=== PATIENT | male | born 1965 | race Caucasian/White ===

== ENCOUNTER 2019-10-23 12:35 | Emergency (ER) | payer OTHER, SELFPAY ==
[2019-10-23 13:32] VITALS: BP 186/100; PULSE 81; RESP 22; TEMP 36.7; O2SAT 96
--- NOTE | 2019-10-23 13:40 | XR_ITS ---
WS: [id number] Portable AP upright chest, 10/23/2019 Clinical Data: SOB Comparison: PA and lateral chest, 08/21/2019. Findings: No nodules, masses or effusions are seen. The heart is normal. The pulmonary vascularity is not remarkable. No pneumonia or pneumothorax is seen. There is an old healed posterior-lateral right eighth rib fracture. XR/XR chest 1V portable 25020 Impression: Negative chest.
--- NOTE | 2019-10-23 13:43 | ECG_ITS ---
Measurements Intervals [place] Rate: 80 P: 42 VA: 160 QRS: 33 QRSD: 85 T: 59 QT: 363 QTc: 419 SINUS RHYTHM Compared to ECG 04/09/2019 10:36:23 No significant changes Electronically Signed On 10-23-2019 17:08:51 VEGETABLE PACKER by Mayte Orlando M.D. [email or web address]
[2019-10-23 14:31] LABS: Basophils % 0.6 %; Eosinophils # 0.2 10^3/uL (0.0-0.8); Eosinophils % 4.2 %; Hematocrit 44.4 % (42.0-52.0); Hemoglobin 14.4 g/dL (11.7-16.6); Lymphocytes # 1.3 10^3/uL (0.8-4.8); Lymphocytes % 24.5 %; Mean Corpuscular HGB Conc 32.4 g/dL (30.0-36.0); Mean Corpuscular Hemoglobin 28.7 pg (28.0-34.0); Mean Corpuscular Volume 88.6 fL (80-94); Monocytes # 0.6 10^3/uL (0.2-0.9); Monocytes % 11.2 %; Neutrophils # 3.1 10^3/uL (1.8-7.7); Neutrophils % 59.1 %; Nucleated Red Blood Cells % 0 %; Platelet Count 219 10^3/cmm (130-400); Red Blood Count 5.01 10^6/uL (4.1-5.3); Red Cell Distribution Width 12.6 % (12.1-15.1); White Blood Count 5.3 10^3/uL (4.0-10.0)
[2019-10-23 14:51] LABS: Alanine Aminotransferase 20 U/L (0-41); Albumin Level 4.3 g/dL (3.5-5.2); Alkaline Phosphatase 101 IU/L (40-130); Aspartate Amino Transferase 25 U/L (0-40); Blood Urea Nitrogen 7 mg/dL (6-20); Calcium 9.4 mg/Dl (8.6-10.0); Carbon Dioxide 26 mmol/L (22-29); Chloride 100 mmol/L (98-107); Globulin 2.4 g/dL (1.3-4.6); Glucose 93 mg/dL (74-109); Sodium 139 mmol/L (136-145); Total Bilirubin 0.5 mg/dL (0.15-1.2); Total Protein 6.7 g/dL (6.6-8.7)
[2019-10-23 14:52] LABS: Troponin(5th) Baseline 12 ng/mL (0-15)
--- NOTE | 2019-10-23 15:43 | ECG_ITS ---
Measurements Intervals [place] Rate: 82 P: 104 SC: 161 QRS: 54 QRSD: 100 T: 116 QT: 340 QTc: 399 SINUS RHYTHM ABNORMAL QRS-T ANGLE [QRS-T AXIS DIFFERENCE > 60] Compared to ECG 04/09/2019 10:36:23 No significant changes Electronically Signed On 10-23-2019 17:10:29 POLICE ACADEMY INSTRUCTOR by Mayte Orlando M.D. [email or web address]
[2019-10-23 16:50] LABS: Troponin 5 2HR 11.51 ng/mL (0-15)
[2019-10-23 16:51] LABS: Troponin 5 2HR Delta -0.49 ABS# (0-10)
[2019-10-23 17:30] VITALS: BP 174/90; PULSE 83; RESP 20; O2SAT 94
--- NOTE | 2019-10-23 17:33 | W.ED.SOB ---
HPI - SOB/Dyspnea General: Chief Complaint: Shortness of Breath/Dyspnea Stated Complaint: SoB Time Seen by Provider: 10/23/19 17:34 History of Present Illness: HPI Narrative: 54 yo Male presents to ED with complaint of shorntess of breath. [facility] ED PFSH: Statuses (acute, chronic, etc) shown below reflect problem list status as previously entered and may not be historically accurate Social History Smoking and tobacco status: never smoked Course Vital Signs: Vital signs: Vital Signs Temperature 98.0 F 10/23/19 13:32 Pulse Rate 83 10/23/19 17:30 Respiratory Rate 20 H 10/23/19 17:30 Blood Pressure 174/90 10/23/19 17:30 Pulse Oximetry 94 10/23/19 17:30 MDM - SOB/Dyspnea Lab Data: Labs: Lab Results 10/23/19 10/23/19 10/23/19 Range/Units 14:11 14:11 14:11 WBC 5.3 (4.0-10.0) 10^3/ uL RBC 5.01 (4.1-5.3) 10^6/u L Hgb 14.4 (11.7-16.6) g/dL Hct 44.4 (42.0-52.0) % MCV 88.6 (80-94) fL MCH 28.7 (28.0-34.0) pg MCHC 32.4 (30.0-36.0) g/dL RDW 12.6 (12.1-15.1) % Plt Count 219 (130-400) 10^3/c mm MPV 10.0 (7.4-10.4) fL Neut % (Auto) 59.1 % Lymph % (Auto) 24.5 % [place] % (Auto) 11.2 % Eos % (Auto) 4.2 % Baso % (Auto) 0.6 % Neut # (Auto) 3.1 (1.8-7.7) 10^3/u L Lymph # (Auto) 1.3 (0.8-4.8) 10^3/u L [place] # (Auto) 0.6 (0.2-0.9) 10^3/u L Eos # (Auto) 0.2 (0.0-0.8) 10^3/u L Baso # (Auto) 0.0 (0.0-0.1) 10^3/u L Nucleated RBC % (a uto) 0 % Nucleated RBCs # 0.0 /100WBC Sodium 139 (136-145) mmol/L Potassium 4.0 (3.5-5.1) mmol/L Chloride 100 (98-107) mmol/L Carbon Dioxide 26 (22-29) mmol/L Anion Gap 17.0 (5-19) BUN 7 (6-20) mg/dL Creatinine 0.8 (0.7-1.2) mg/dL GFR Calculation 100.0 (90-130) mL/min Glucose 93 (74-109) mg/dL Calcium 9.4 (8.6-10.0) mg/Dl Total Bilirubin 0.5 (0.15-1.2) mg/dL AST 25 (0-40) U/L ALT 20 (0-41) U/L Alkaline Phosphata se 101 (40-130) IU/L Troponin T Baselin e 12 (0-15) ng/mL Troponin T 120 Min [place] (0-15) ng/mL Delta Troponin T (0-10) ABS# Total Protein 6.7 (6.6-8.7) g/dL Albumin 4.3 (3.5-5.2) g/dL Globulin 2.4 (1.3-4.6) g/dL 10/23/19 Range/Units 16:19 WBC (4.0-10.0) 10^3/ uL RBC (4.1-5.3) 10^6/u L Hgb (11.7-16.6) g/dL Hct (42.0-52.0) % MCV (80-94) fL MCH (28.0-34.0) pg MCHC (30.0-36.0) g/dL RDW (12.1-15.1) % Plt Count (130-400) 10^3/c mm MPV (7.4-10.4) fL Neut % (Auto) % Lymph % (Auto) % [place] % (Auto) % Eos % (Auto) % Baso % (Auto) % Neut # (Auto) (1.8-7.7) 10^3/u L Lymph # (Auto) (0.8-4.8) 10^3/u L [place] # (Auto) (0.2-0.9) 10^3/u L Eos # (Auto) (0.0-0.8) 10^3/u L Baso # (Auto) (0.0-0.1) 10^3/u L Nucleated RBC % (a uto) % Nucleated RBCs # /100WBC Sodium (136-145) mmol/L Potassium (3.5-5.1) mmol/L Chloride (98-107) mmol/L Carbon Dioxide (22-29) mmol/L Anion Gap (5-19) BUN (6-20) mg/dL Creatinine (0.7-1.2) mg/dL GFR Calculation (90-130) mL/min Glucose (74-109) mg/dL Calcium (8.6-10.0) mg/Dl Total Bilirubin (0.15-1.2) mg/dL AST (0-40) U/L ALT (0-41) U/L Alkaline Phosphata se (40-130) IU/L Troponin T Baselin e (0-15) ng/mL Troponin T 120 Min [place] 11.51 (0-15) ng/mL Delta Troponin T -0.49 L (0-10) ABS# Total Protein (6.6-8.7) g/dL Albumin (3.5-5.2) g/dL Globulin (1.3-4.6) g/dL Coding Level of Care Code ED Cement Mixer Driver for Noel Jean
--- NOTE | 2019-10-23 17:35 | PC.NURSE ---
patient states chest tightness is from the cough and history of COPD, not cardiac related
--- NOTE | 2019-10-23 17:45 | W.ED.GENADLT ---
HPI - General Adult General: Chief complaint: Shortness of Breath/Dyspnea Stated complaint: SoB Time Seen by Provider: 10/23/19 17:34 History of Present Illness: MD complaint: fever, chills, muscles aches, sob a few days Onset (ago): day(s) Location: chest Severity: moderate Associated symptoms: Reports dyspnea; Deny headache(s), nausea, rash or vomiting Review of Systems Const: Denies: fever, chills or body aches Eyes: Denies: change in vision or blurry vision ENMT: Denies: throat pain or nasal congestion Card: Denies: shortness of breath on exertion Resp: Reports: shortness of breath; Denies: productive cough or non-productive cough GI: Denies: abdominal pain, nausea or vomiting : Denies: difficulty urinating Musc: Denies: extremity pain Skin/Breast: Denies: rash Neuro: Denies: headache Psych: Denies: anxiety or depression [place]/Lymph: Denies: easy bruising PFSH ED PFSH: Statuses (acute, chronic, etc) shown below reflect problem list status as previously entered and may not be historically accurate Social History Smoking and tobacco status: never smoked Physical Exam Const: COMMON NORMALS: no apparent distress, average body habitus and oriented x3 HENMT: COMMON NORMALS: normocephalic HEAD & SCALP: normal to inspection and normocephalic FACE & SINUS: normal facial exam Eye: COMMON NORMALS: conjunctivae normal GENERAL EYE: normal appearance of both eyes CONJUNCTIVA: Yes conjunctivae normal Neck/C-Spine: COMMON NORMALS: no JVD Chest: COMMONS NORMALS: inspection of chest normal Resp: COMMON NORMALS: normal respiratory effort and clear to auscultation bilaterally AUSCULTATION: clear to auscultation bilaterally, wheezes scattered wheezes and diminished lung sounds bilateral and diffuse Cardio: COMMON NORMALS: no JVD, regular rate and regular rhythm RATE: regular rate RHYTHM: regular rhythm GI: COMMON NORMALS: normal to inspection, nondistended, normoactive bowel sounds Extremity: COMMON NORMALS: normal to inspection and full ROM Neuro: COMMON NORMALS: oriented x3 Course Vital Signs: Vital signs: Vital Signs Temperature 98.0 F 10/23/19 13:32 Pulse Rate 83 10/23/19 17:30 Respiratory Rate 20 H 01/02/20 17:30 Blood Pressure 174/90 10/23/19 17:30 Pulse Oximetry 94 10/23/19 17:30 [facility] - General Adult Lab Data: Labs: Lab Results 10/23/19 10/23/19 10/23/19 Range/Units 14:11 14:11 14:11 WBC 5.3 (4.0-10.0) 10^3/ uL RBC 5.01 (4.1-5.3) 10^6/u L Hgb 14.4 (11.7-16.6) g/dL Hct 44.4 (42.0-52.0) % MCV 88.6 (80-94) fL MCH 28.7 (28.0-34.0) pg MCHC 32.4 (30.0-36.0) g/dL RDW 12.6 (12.1-15.1) % Plt Count 219 (130-400) 10^3/c mm MPV 10.0 (7.4-10.4) fL Neut % (Auto) 59.1 % Lymph % (Auto) 24.5 % [place] % (Auto) 11.2 % Eos % (Auto) 4.2 % Baso % (Auto) 0.6 % Neut # (Auto) 3.1 (1.8-7.7) 10^3/u L Lymph # (Auto) 1.3 (0.8-4.8) 10^3/u L [place] # (Auto) 0.6 (0.2-0.9) 10^3/u L Eos # (Auto) 0.2 (0.0-0.8) 10^3/u L Baso # (Auto) 0.0 (0.0-0.1) 10^3/u L Nucleated RBC % (a uto) 0 % Nucleated RBCs # 0.0 /100WBC Sodium 139 (136-145) mmol/L Potassium 4.0 (3.5-5.1) mmol/L Chloride 100 (98-107) mmol/L Carbon Dioxide 26 (22-29) mmol/L Anion Gap 17.0 (5-19) BUN 7 (6-20) mg/dL Creatinine 0.8 (0.7-1.2) mg/dL GFR Calculation 100.0 (90-130) mL/min Glucose 93 (74-109) mg/dL Calcium 9.4 (8.6-10.0) mg/Dl Total Bilirubin 0.5 (0.15-1.2) mg/dL AST 25 (0-40) U/L ALT 20 (0-41) U/L Alkaline Phosphata se 101 (40-130) IU/L Troponin T Baselin e 12 (0-15) ng/mL Troponin T 120 Min [place] (0-15) ng/mL Delta Troponin T (0-10) ABS# Total Protein 6.7 (6.6-8.7) g/dL Albumin 4.3 (3.5-5.2) g/dL Globulin 2.4 (1.3-4.6) g/dL 10/23/19 Range/Units 16:19 WBC (4.0-10.0) 10^3/ uL RBC (4.1-5.3) 10^6/u L Hgb (11.7-16.6) g/dL Hct (42.0-52.0) % MCV (80-94) fL MCH (28.0-34.0) pg MCHC (30.0-36.0) g/dL RDW (12.1-15.1) % Plt Count (130-400) 10^3/c mm MPV (7.4-10.4) fL Neut % (Auto) % Lymph % (Auto) % [place] % (Auto) % Eos % (Auto) % Baso % (Auto) % Neut # (Auto) (1.8-7.7) 10^3/u L Lymph # (Auto) (0.8-4.8) 10^3/u L [place] # (Auto) (0.2-0.9) 10^3/u L Eos # (Auto) (0.0-0.8) 10^3/u L Baso # (Auto) (0.0-0.1) 10^3/u L Nucleated RBC % (a uto) % Nucleated RBCs # /100WBC Sodium (136-145) mmol/L Potassium (3.5-5.1) mmol/L Chloride (98-107) mmol/L Carbon Dioxide (22-29) mmol/L Anion Gap (5-19) BUN (6-20) mg/dL Creatinine (0.7-1.2) mg/dL GFR Calculation (90-130) mL/min Glucose (74-109) mg/dL Calcium (8.6-10.0) mg/Dl Total Bilirubin (0.15-1.2) mg/dL AST (0-40) U/L ALT (0-41) U/L Alkaline Phosphata se (40-130) IU/L Troponin T Baselin e (0-15) ng/mL Troponin T 120 Min [place] 11.51 (0-15) ng/mL Delta Troponin T -0.49 L (0-10) ABS# Total Protein (6.6-8.7) g/dL Albumin (3.5-5.2) g/dL Globulin (1.3-4.6) g/dL Discharge Plan Discharge Patient Disposition: Home, Self-Care Clinical Impression: Acute exacerbation of chronic obstructive airways disease Condition: Stable Referrals: Clarence Pulliam [Primary Care Provider] - Discharge Diet: Usual diet Discharge Activity: Resume usual activity Patient Instructions: Chronic Obstructive Pulmonary Disease (ED) Activity Restrictions/Additional Instructions: z-pack , use as directed, follow up with PCP as needed Coding Level of Care Code ED Data Capture Specialist for Noel Jean
[2019-10-23] MEDS: azithromycin 250 mg Tablet 500 MG PO (18:12)
[2019-10-23 18:25] LABS: Influenza A by IFA Negative (Negative); Influenza B by IFA Negative (Negative)
[2019-10-23 19:14] VITALS: BP 179/94; PULSE 89; RESP 20; O2SAT 92
== END 2019-10-23 19:05 | disposition home or self-care (01) ==
PROVIDERS: Family Medicine; Emergency Provider Nurse Practitioner Family; Family Provider Internal Medicine; PCP Internal Medicine
DX: J44.1 Chronic obstructive pulmonary disease with (acute) exacerbation (principal)
CPT/HCPCS: 36415; 71045; 80053; 84484; 85025; 87804; 93005; 96374; 99000; 99282; J2930; Q0144

== ENCOUNTER 2020-04-13 10:21 | Emergency (ER) | payer OTHER, SELFPAY ==
[2020-04-13 10:36] VITALS: BMI 40.1
[2020-04-13 10:38] VITALS: BP 170/86; PULSE 55; RESP 20; TEMP 36.7; O2SAT 97
--- NOTE | 2020-04-13 10:42 | ED_ITS ---
HPI - Nausea/Vomiting/Diarrhea General: Chief complaint: Nausea/Vomiting/Diarrhea Stated complaint: n/v/d x 12 days Time Seen by Provider: 04/13/20 10:35 History of Present Illness: MD elicited complaint: nausea, vomiting and diarrhea Onset (ago): week(s) (started about 2 weeks ago) Description of vomiting: food contents (no blood) Description of diarrhea: lose (brown colored. no blood and not black or tarry) Associated nausea: Yes Location of pain: Epigastric (Has been going on for 2 weeks along with only other abdominal pain.), Periumbilical and RUQ Radiation: RUQ and RLQ Pain consistency: constant Severity: moderate Pain scale (0-10): 8 Quality: cramping and constant Exacerbating factors: eating Relieving factors: none Context: possible food poisoning (Patient did say that they did eat some hamburger meat and they found out that the particular brand was recalled. They are unsure if the meat that they purchased at night was 1 of the products recalled.) Associated symtoms: Reports fevers/chills, nausea and other (Patient recently removed from multiple ticks from his right leg.); Denies change in vision, chest pain, dysuria, fatigue, headache(s) or palpitations Treatment prior to arrival: fluids (water) Review of Systems Const: Reports: chills; Denies: fever(s) or fatigue Eyes: Denies: change in vision or eye discomfort ENMT: Denies: throat pain, odynophagia, nasal discharge or nasal congestion Card: Denies: chest pain, palpitations, edema, swelling of feet/ankles, dyspnea on exertion or orthopnea Resp: Denies: dyspnea, productive cough or non-productive cough GI: Reports: abdominal pain (periumbilical and epigastric. pain radiates down to right side of abdomen), nausea, vomiting and diarrhea; Denies: hematemesis, coffee ground emesis, hematochezia or melena : Denies: flank pain, difficulty urinating, dysuria or hematuria Musc: Denies: neck pain, back pain or extremity swelling Skin/Breast: Denies: rash or new lesions Neuro: Denies: headache(s), numbness in extremities or weakness in extremities PFSH ED PFSH: Social History Smoking and tobacco status: never smoked Physical Exam Const: COMMON NORMALS: patient oriented x3 and alert GENERAL APPEARANCE: cooperative and comfortable HENMT: COMMON NORMALS: normocephalic HEAD & SCALP: normocephalic MOUTH: Normal oral and palatal mucosa present THROAT: posterior oropharynx normal and uvula midline Eye: COMMON NORMALS: Equal, round and reactive pupils present PUPIL: Yes Equal, round and reactive pupils present Neck/C-Spine: COMMON NORMALS: supple GENERAL: Yes normal visual inspection Resp: COMMON NORMALS: normal respiratory effort, No retractions, No use of accessory muscles and clear to auscultation bilaterally AUSCULTATION: clear to auscultation bilaterally Cardio: COMMON NORMALS: regular rate, regular rhythm, S1 normal heart sound present, S2 normal heart sound present, No gallops present (Cardio), No clicks present (Cardio), No murmurs present (Cardio) and Peripheral pulses 2+ throughout RATE: regular rate RHYTHM: regular rhythm HEART SOUNDS: S1 normal heart sound present and S2 normal heart sound present PERIPHERAL PULSES: Peripheral pulses 2+ throughout GI: COMMON NORMALS: Normal to inspection, nondistended, normoactive bowel sounds present, Soft to palpation and no masses INSPECTION: Yes central obesity PALPATION: Yes Soft to palpation and Yes Tenderness to palpation present (GI) (Mild diffuse tenderness. ) Details: RUQ (Some localized tenderness in the right upper quadrant and epigastric region.) and other (Epigastric) : COMMON NORMALS: Yes no CVA tenderness BLADDER/KIDNEY EXAM: Yes no CVA tenderness Back/Pelvis: COMMON NORMALS: no CVA tenderness Extremity: COMMON NORMALS: normal to inspection Neuro: COMMON NORMALS: patient oriented x3 and moves all extremities SENSORIUM/ORIENTATION: Yes alert SPEECH: speech normal GAIT: Yes Normal gait present Skin: COMMON NORMALS: no rashes or lesions noted GENERAL SKIN EXAM: no rashes or lesions noted and dry skin Course Vital Signs: Vital signs: Vital Signs Temperature 98.0 F 04/13/20 10:38 Pulse Rate 76 04/13/20 15:02 Respiratory Rate 15 04/13/20 15:02 Blood Pressure 135/75 04/13/20 15:02 Pulse Oximetry 98 04/13/20 15:02 MDM - Nausea/Vomiting/Diarrhea MDM Narrative: Medical decision making narrative: Pt is a 54 y/o m that comes to the ED with epigastric, RUQ abdom pain, n/v/d. pt has had these symptoms multiple times before, but this time the symptoms have lasted the longest. Pt also has recent tick bites. cbc (WBC 5.6), cmp and ua were unremarkable. Tick panel pending. EKG was normal sinus with no st segment elevation or depression seen and troponins were negative ruling out cardiac cause. Ct of the abdomen showed Cholelithiasis. No evidence for acute cholecystitis by CT. Very minimal central biliary dilatation with no common bile duct dilatation. US of Gall Bladder showed Cholelithiasis. No definite evidence for acute cholecystitis but limited evaluation by body habitus. pt's pain improved with IV morphine and GI cocktail. Nausea also improved with zofran. pt was diagnosed with gallstones, biliary colic and GERD. pt discharged with prescription for prevacid, doxycycline for tick disease and written prescription for norco for pain. I placed an order with case management for pt to get a gen surgery referral. pt was told to stay on a CLD diet for the next 24-48 hours and then advance as tolerated. Pt told to come back to ED if worsening symptoms. pt understood and agreed with plan. Lab Data: Attestation: I reviewed the patient's lab results. Labs: Lab Results 04/13/20 04/13/20 04/13/20 Range/Units 10:50 10:50 10:50 WBC 5.6 (4.0-10.0) 10^3/ uL RBC 4.96 (4.1-5.3) 10^6/u L Hgb 14.4 (11.7-16.6) g/dL Hct 44.2 (42.0-52.0) % MCV 89.1 (80-94) fL MCH 29.0 (28.0-34.0) pg MCHC 32.6 (30.0-36.0) g/dL RDW 12.8 (12.1-15.1) % Plt Count 210 (130-400) 10^3/c mm MPV 10.1 (7.4-10.4) fL Neut % (Auto) 55.7 % Lymph % (Auto) 29.6 % [place] % (Auto) 10.0 % Eos % (Auto) 3.4 % Baso % (Auto) 1.1 % Neut # (Auto) 3.1 (1.8-7.7) 10^3/u L Lymph # (Auto) 1.7 (0.8-4.8) 10^3/u L [place] # (Auto) 0.6 (0.2-0.9) 10^3/u L Eos # (Auto) 0.2 (0.0-0.8) 10^3/u L Baso # (Auto) 0.1 (0.0-0.1) 10^3/u L Nucleated RBC % (a uto) 0 % Nucleated RBCs # 0.0 /100WBC Sodium 139 (136-145) mmol/L Potassium 3.8 (3.5-5.1) mmol/L Chloride 100 (98-107) mmol/L Carbon Dioxide 30 H (22-29) mmol/L Anion Gap 12.8 (5-19) BUN 8 (6-20) mg/dL Creatinine 0.8 (0.7-1.2) mg/dL GFR Calculation 100.0 (90-130) mL/min Glucose 98 (65-115) mg/dL Calculated Osmolal ity 284 L (285-295) mOsm/k g Calcium 9.7 (8.5-10.5) mg/dL Total Bilirubin 0.7 (0.15-1.2) mg/dL AST 27 (0-40) U/L ALT 35 (0-41) U/L Alkaline Phosphata se 98 (40-130) IU/L Troponin T Gen 5 n g/L 13 (0-15) ng/L Total Protein 6.9 (6.6-8.7) g/dL Albumin 4.3 (3.5-5.2) g/dL Globulin 2.6 (1.3-4.6) g/dL Lipase 51 (13-60) U/L Urine Color (Yellow) Urine Appearance (CLEAR) Urine pH (5-7) Ur Specific Gravit y (1.005-1.030) Urine Protein (Negative) Urine Glucose (UA) (Normal) Urine Ketones (Negative) Urine Blood (Negative) Urine Nitrate (Negative) Urine Bilirubin (NEGATIVE) Urine Urobilinogen (Negative) mg/dL Ur Leukocyte Audelia ase (Negative) 04/13/20 Range/Units 11:18 WBC (4.0-10.0) 10^3/ uL RBC (4.1-5.3) 10^6/u L Hgb (11.7-16.6) g/dL Hct (42.0-52.0) % MCV (80-94) fL MCH (28.0-34.0) pg MCHC (30.0-36.0) g/dL RDW (12.1-15.1) % Plt Count (130-400) 10^3/c mm MPV (7.4-10.4) fL Neut % (Auto) % Lymph % (Auto) % [place] % (Auto) % Eos % (Auto) % Baso % (Auto) % Neut # (Auto) (1.8-7.7) 10^3/u L Lymph # (Auto) (0.8-4.8) 10^3/u L [place] # (Auto) (0.2-0.9) 10^3/u L Eos # (Auto) (0.0-0.8) 10^3/u L Baso # (Auto) (0.0-0.1) 10^3/u L Nucleated RBC % (a uto) % Nucleated RBCs # /100WBC Sodium (136-145) mmol/L Potassium (3.5-5.1) mmol/L Chloride (98-107) mmol/L Carbon Dioxide (22-29) mmol/L Anion Gap (5-19) BUN (6-20) mg/dL Creatinine (0.7-1.2) mg/dL GFR Calculation (90-130) mL/min Glucose (65-115) mg/dL Calculated Osmolal ity (285-295) mOsm/k g Calcium (8.5-10.5) mg/dL Total Bilirubin (0.15-1.2) mg/dL AST (0-40) U/L ALT (0-41) U/L Alkaline Phosphata se (40-130) IU/L Troponin T Gen 5 n g/L (0-15) ng/L Total Protein (6.6-8.7) g/dL Albumin (3.5-5.2) g/dL Globulin (1.3-4.6) g/dL Lipase (13-60) U/L Urine Color Yellow (Yellow) Urine Appearance Clear (CLEAR) Urine pH 7 (5-7) Ur Specific Gravit y 1.005 (1.005-1.030) Urine Protein Neg (Negative) Urine Glucose (UA) Norm (Normal) Urine Ketones Negative (Negative) Urine Blood Neg (Negative) Urine Nitrate Negative (Negative) Urine Bilirubin Neg (NEGATIVE) Urine Urobilinogen Norm (Negative) mg/dL Ur Leukocyte Audelia ase Negative (Negative) Imaging Data^: CT Abd/Pel: Attestation: I personally reviewed and interpreted this imaging study as follows: Radiologist's impression: [facility] [address] [place] [address] CT Scan Report Signed Patient: Ronald Bowen Unit #: [id number] : 1965 Age/Sex: 54 / M ADM Date: 04/13/20 Loc: ER Room/Bed: Attending Dr: Ordering Provider/Ordering MD: Olivier Fong Date of Service: 04/13/20 Procedure(s): CT abdomen pelvis w con* [id number] Accession Number(s): [id number] Report Number: [id number] WS: [id number] CT ABDOMEN AND PELVIS WITH CONTRAST HISTORY: Abdominal pain, n/v/d TECHNIQUE: Imaging performed of the abdomen and pelvis with IV contrast. Single phase imaging of the abdomen. Coronal and sagittal reformats are submitted. All CT scans at [facility] us e at least one of these dose optimization techniques: automated exposure control; mA and/or kV adjustment per patient size (includes targeted exams where dose is matched to clinical indication); or iterative reconstruction. IV CONTRAST: Omnipaque 300; 95 mL IV. Oral contrast: No DLP: 1514.36 mGy.cm COMPARISON: None available. Lower thorax: Lung bases are clear. Heart is normal size. Small hiatal hernia. Liver/biliary system: Liver is normal size. There is very minimal central bile duct dilatation. No mass identified. Gallbladder: Normally distended gallbladder. There are several stones within t he gallbladder. No wall thickening or adjacent inflammation. Pancreas: Normal. Spleen: Normal. Adrenal glands: Normal. Right kidney: Normal. Left kidney: Normal. Aorta: Normal. Lymphadenopathy: None. Free fluid: None. GI tract: Normal appendix. No GI tract obstruction. Abdominal wall: Unremarkable abdominal wall. No hernia. Pelvis: Normal urinary bladder. A few prostate gland calcifications centrally. Bones: Unremarkable. CT/CT abdomen pelvis w con* [id number] IMPRESSION: 1. Normal appendix. 2. No GI tract obstruction. 3. Cholelithiasis. No evidence for acute cholecystitis by CT. 4. Very minimal central biliary dilatation with no common bile duct dilatation. Dictated By: Elinor Leos DO Signed By: Elinor Leos DO Signed Date/Time: 04/13/20 1249 DD/ 1244 US: Attestation: I personally reviewed and interpreted this imaging study as follows: Radiologist's impression: [address] [address] Ultrasound Report Signed Patient: Ronald Bowen Unit #: [id number] : 1965 Age/Sex: 54 / M ADM Date: 04/13/20 Loc: ER Room/Bed: Attending Dr: Ordering Provider/Ordering MD: Olivier Fong Date of Service: 04/13/20 Procedure(s): US gall bladder 21945 Accession Number(s): [id number] Report Number: [id number] WS: [id number] RIGHT UPPER QUADRANT ULTRASOUND HISTORY: epigastric pain and RUQ pain, N/V/D COMPARISON: CT abdomen 04/13/2020 Liver: 13.6 cm in length. Poorly visualized liver. The entire liver is not well visualized due to hepatic steatosis and body habitus. The bile ducts cannot be evaluated. Gallbladder: Normally distended gallbladder with stones. Gallbladder is poorly visualized. CBD: 0.4 cm Pancreas: Poorly visualized. Right kidney: 11.3 cm in length. Normal echogenicity with no mass or hydronephrosis. Aorta and IVC: Poorly visualized. No ascites. US/US gall bladder [id number] IMPRESSION: 1. Very limited evaluation of the RIGHT upper quadrant. 2. Cholelithiasis. No definite evidence for acute cholecystitis but limited evaluation by body habitus. 3. Hepatic steatosis with limited evaluation of the liver and bile ducts. Dictated By: Elinor Leos DO Signed By: Deric,Elinor A DO Signed Date/Time: 04/13/20 1359 DD/ 1357 EKG Data^: EKG 1: Attestation: I personally reviewed and interpreted this EKG as follows: EKG interpretation date: 04/13/20 Interpretation: Sinus bradycardia, 46 bpm, no ST segment elevation or depression seen. P waves present. Discharge Plan Discharge Patient Disposition: Home, Self-Care Clinical Impression: Biliary colic Cholecystolithiasis Qualifiers: Cholecystitis presence: without cholecystitis Biliary obstruction: without biliary obstruction Qualified Code(s): K80.20 - Calculus of gallbladder without cholecystitis without obstruction Gastroesophageal reflux disease Qualifiers: Esophagitis presence: esophagitis presence not specified Qualified Code(s): K21.9 - Gastro-esophageal reflux disease without esophagitis Condition: Stable Prescriptions: New Prevacid 30 mg capsule,delayed release(DR/EC) 60 mg PO DAILY Qty: 30 RF: 0 Zofran 4 mg tablet 4 mg PO BID Qty: 30 RF: 0 doxycycline hyclate 100 mg capsule 100 mg PO BID 14 Days Qty: 28 RF: 0 No Action multivitamin Tablet 1 tab PO DAILY RF: 0 albuterol sulfate 2.5 mg /3 mL (0.083 %) Solution For Nebulization 2.5 mg INHALATION Q6H PRN (Reason: Shortness Of Breath) RF: 0 Vitamin C 500 mg Tablet 500 mg PO DAILY RF: 0 albuterol sulfate 90 mcg/actuation Hfa Aerosol Inhaler 1 inh INHALATION QID PRN (Reason: Shortness Of Breath) RF: 0 ipratropium bromide 0.02 % Solution 2.5 ml INHALATION Q6H PRN (Reason: Shortness Of Breath) RF: 0 hydrochlorothiazide 12.5 mg Tablet 12.5 mg PO DAILY RF: 0 Stiolto Respimat 2.5-2.5 mcg/actuation Mist 2 puff INHALATION DAILY RF: 0 biotin 1,000 mcg Tablet,Chewable 1,000 mcg PO DAILY RF: 0 Discharge Orders: Discharge Order (Routine); Ordered 04/13/20 Ordered By: Olivier Fong Referrals: Clarence Pulliam [Primary Care Provider] - Discharge Diet: Regular Patient Instructions: Biliary Colic (ED), Clear Liquid Diet (ED), Gastroesophageal Reflux Disease (ED) Activity Restrictions/Additional Instructions: Contact your PCP and set up an appointment for reevaluation in 5 to 7 days. I placed general surgery referral for you so someone should be contacting you in the next several days to set up an appointment. In the next 24 to 48 hours have a clear liquid diet only. Then you can slowly start to advance as tolerated. Send you home with a prescription for Prevacid, Zofran for nausea and hydrocodone for pain. Take all meds as prescribed. Continue other home meds drink plenty fluids and stay hydrated. You can return to the ED for reevaluation if symptoms worsen. Discharge Date/Time: 04/13/20 15:03 Coding Level of Care Code ED Kst Operator for Noel Fwprashanth Exam Comprehensive
[2020-04-13 10:59] LABS: Basophils # 0.1 10^3/uL (0.0-0.1); Basophils % 1.1 %; Eosinophils # 0.2 10^3/uL (0.0-0.8); Eosinophils % 3.4 %; Hematocrit 44.2 % (42.0-52.0); Hemoglobin 14.4 g/dL (11.7-16.6); Lymphocytes # 1.7 10^3/uL (0.8-4.8); Lymphocytes % 29.6 %; Mean Corpuscular HGB Conc 32.6 g/dL (30.0-36.0); Mean Corpuscular Volume 89.1 fL (80-94); Mean Platelet Volume 10.1 fL (7.4-10.4); Monocytes # 0.6 10^3/uL (0.2-0.9); Neutrophils # 3.1 10^3/uL (1.8-7.7); Neutrophils % 55.7 %; Nucleated Red Blood Cells % 0 %; Platelet Count 210 10^3/cmm (130-400); Red Blood Count 4.96 10^6/uL (4.1-5.3); Red Cell Distribution Width 12.8 % (12.1-15.1); White Blood Count 5.6 10^3/uL (4.0-10.0)
--- NOTE | 2020-04-13 11:03 | CT_ITS ---
WS: [id number] CT ABDOMEN AND PELVIS WITH CONTRAST HISTORY: Abdominal pain, n/v/d TECHNIQUE: Imaging performed of the abdomen and pelvis with IV contrast. Single phase imaging of the abdomen. Coronal and sagittal reformats are submitted. All CT scans at [facility] use at least one of these dose optimization techniques: automated exposure control; mA and/or kV adjustment per patient size (includes targeted exams where dose is matched to clinical indication); or iterativ e reconstruction. IV CONTRAST: Omnipaque 300; 95 mL IV. Oral contrast: No DLP: 1514.36 mGy.cm COMPARISON: None available. Lower thorax: Lung bases are clear. Heart is normal size. Small hiatal hernia. Liver/biliary system: Liver is normal size. There is very minimal central bile duct dilatation. No ma ss identified. Gallbladder: Normally distended gallbladder. There are several stones within the gallbladder. No wall thickening or adjacent inflammation. Pancreas: Normal. Spleen: Normal. Adrenal glands: Normal. Right kidney: Normal. Left kidney: Normal. Aorta: Normal. Lymphadenopathy: None. Free fluid: None. GI tract: Normal appendix. No GI tract obstruction. Abdominal wall: Unremarkable abdominal wall. No hernia. Pelvis: Normal urinary bladder. A few prostate gland calcifications centrally. Bones: Unremarkable. CT/CT abdomen pelvis w con* [id number] IMPRESSION: 1. Normal appendix. 2. No GI tract obstruction. 3. Cholelithiasis. No evidence for acute cholecystitis by CT. 4. Very minimal central biliary dilatation with no common bile duct dilatation .
[2020-04-13 11:16] LABS: Alanine Aminotransferase 35 U/L (0-41); Albumin Level 4.3 g/dL (3.5-5.2); Alkaline Phosphatase 98 IU/L (40-130); Anion Gap 12.8 (5-19); Aspartate Amino Transferase 27 U/L (0-40); Blood Urea Nitrogen 8 mg/dL (6-20); Calcium 9.7 mg/dL (8.5-10.5); Carbon Dioxide 30 mmol/L (22-29); Chloride 100 mmol/L (98-107); Globulin 2.6 g/dL (1.3-4.6); Glucose 98 mg/dL (65-115); Lipase 51 U/L (13-60); Osmolality Calculated 284 mOsm/kg (285-295); Potassium 3.8 mmol/L (3.5-5.1); Sodium 139 mmol/L (136-145); Total Bilirubin 0.7 mg/dL (0.15-1.2); Total Protein 6.9 g/dL (6.6-8.7)
[2020-04-13 11:19] VITALS: RESP 15
[2020-04-13] MEDS: morphine 4 mg/mL SDV 1 mL IVP ×3 (11:19→14:54)
[2020-04-13] MEDS: ondansetron 2 mg/ML SDV 2 mL 4 MG IVP ×2 (11:19→14:54)
[2020-04-13] MEDS: lactated ringers 1,000 ML 999 ML IV (11:56)
[2020-04-13 12:07] LABS: Add Urine Microscopic? NO
[2020-04-13] MEDS: iohexol 300 mg/mL 100 mL Btl IV (12:14)
[2020-04-13 12:17] LABS: Bilirubin Urine Neg (NEGATIVE); Blood Urine Neg (Negative); Glucose Urine UA Norm (Normal); Ketones Urine Negative (Negative); Leukocyte Esterase Urine Negative (Negative); Nitrate Urine Negative (Negative); Protein Urine Neg (Negative); Specific Gravity, Urine 1.005 (1.005-1.030); Urine Appearance Clear (CLEAR); Urine Color Yellow (Yellow); Urobilinogen Urine Norm (Negative); pH Urine 7 (5-7)
[2020-04-13 12:30] VITALS: RESP 15
[2020-04-13] MEDS: lidocaine 2% viscous 15 ML, aluminum-mag hydrox-simethicon 30 ML, sucralfate oral liq 1 GM PO (12:30)
--- NOTE | 2020-04-13 13:05 | US_ITS ---
WS: [id number] RIGHT UPPER QUADRANT ULTRASOUND HISTORY: epigastric pain and RUQ pain, N/V/D COMPARISON: CT abdomen 04/13/2020 Liver: 13.6 cm in length. Poorly visualized liver. The entire liver is not well visualized due to hep atic steatosis and body habitus. The bile ducts cannot be evaluated. Gallbladder: Normally distended gallbladder with stones. Gallbladder is poorly visualized. CBD: 0.4 cm Pancreas: Poorly visualized. Right kidney: 11.3 cm in length. Normal echogenicity with no mass or hydronephrosis. Aorta and IVC: Poorly visualized. No ascites. US/US gall bladder [id number] IMPRESSION: 1. Very limited evaluation of the RIGHT upper quadrant. 2. Cholelithiasis. No definite evidence for acute cholecystitis but limited ev aluation by body habitus. 3. Hepatic steatosis with limited evaluation of the liver and bile ducts.
--- NOTE | 2020-04-13 13:17 | ECG_ITS ---
[facility] Test Date: 2020-04-13 Pat Name: Ronald Bowen Department: Room: Gender: Male It Risk Advisor: : 1965 Requested By: Olivier Fong Order Number: [id number] Marcelo MD: Sintia Zavaleta M.D. Measurements Intervals [place] Rate: 46 P: 12 [place]: 168 QRS: 39 QRSD: 91 T: 47 QT: 444 QTc: 391 Interpretive Statements SINUS BRADYCARDIA WITH SINUS ARRHYTHMIA Compared to ECG 10/23/2019 16:05:53 Sinus rhythm no longer present Electronically Signed On 04-13-2020 23:43:40 CDT by Sintia Zavaleta M.D. [id number]
[2020-04-13 13:58] LABS: Troponin T (5th) Once 13 ng/L (0-15)
[2020-04-13 14:54] VITALS: RESP 15
[2020-04-13 15:02] VITALS: BP 135/75; PULSE 76; RESP 15; O2SAT 98
--- NOTE | 2020-04-14 11:14 | DCPLANNER ---
teaching manager had message to schedule a follow up appointment for patient with general surgery. teaching manager called [facility], spoke with Diane, gave clinic patients appointment information. teaching manager was told that patients records would be printed and reviewed. Patient has [facility], telephonic case manager called January with [facility], and informed her that patient was seen in the ED and that a referral has been placed to [facility]. When telephonic case manager gets appointment information, telephonic case manager will call January with appointment information.
[2020-04-14 12:57] LABS: Lyme AB Screen <0.90 index
--- NOTE | 2020-04-15 14:02 | DCPLANNER ---
Patient has an appointment scheduled for Sunday, April 27, 2020 at 2:00 with [facility]. Clinic will call patient with appointment information.
[2020-04-16 22:00] LABS: E. Chaffeensis AB IGG <1:64; E. Chaffeensis AB IGM <1:20
[2020-04-17 16:25] LABS: RMSF IGG DETECTED; RMSF IGM NOT DETECTED
--- NOTE | 2020-05-04 12:30 | DCPLANNER ---
Patient did attend follow up appointment scheduled for 04.26.20 with [facility].
== END 2020-04-13 15:03 | disposition home or self-care (01) ==
PROVIDERS: Emergency Provider Physician Assistant; Family Provider Internal Medicine; PCP Internal Medicine
DX: K80.20 Calculus of gallbladder without cholecystitis without obstruction (principal); K21.9 Gastro-esophageal reflux disease without esophagitis
CPT/HCPCS: 12345; 36415; 74177; 76705; 80053; 81003; 83690; 84484; 85025; 86618; 86666; 86757; 87040; 93005; 96365; 96375; 96376; 99282; 99284; J2270; J2405; Q9967

== ENCOUNTER 2020-04-15 12:01 | Observation (INO) | payer OTHER, SELFPAY ==
[2020-04-15] VITALS (9 sets, daily range): BP systolic 124–147; BP diastolic 68–84; PULSE 48–88; RESP 14–20; TEMP 36.4–36.9; O2SAT 93–98; BMI 39.0
[2020-04-15 14:02] LABS: Basophils # 0.1 10^3/uL (0.0-0.1); Eosinophils # 0.1 10^3/uL (0.0-0.8); Eosinophils % 2.5 %; Hematocrit 42.8 % (42.0-52.0); Lymphocytes # 1.4 10^3/uL (0.8-4.8); Lymphocytes % 29.9 %; Mean Corpuscular HGB Conc 32.7 g/dL (30.0-36.0); Mean Corpuscular Hemoglobin 29.6 pg (28.0-34.0); Mean Corpuscular Volume 90.5 fL (80-94); Mean Platelet Volume 10.2 fL (7.4-10.4); Monocytes # 0.4 10^3/uL (0.2-0.9); Monocytes % 9.2 %; Neutrophils # 2.7 10^3/uL (1.8-7.7); Neutrophils % 57.2 %; Nucleated Red Blood Cells % 0 %; Platelet Count 204 10^3/cmm (130-400); Red Blood Count 4.73 10^6/uL (4.1-5.3); Red Cell Distribution Width 12.8 % (12.1-15.1); White Blood Count 4.8 10^3/uL (4.0-10.0)
[2020-04-15 14:49] LABS: Alanine Aminotransferase 34 U/L (0-41); Albumin Level 4.2 g/dL (3.5-5.2); Alkaline Phosphatase 100 IU/L (40-130); Anion Gap 16.9 (5-19); Aspartate Amino Transferase 28 U/L (0-40); Blood Urea Nitrogen 8 mg/dL (6-20); Calcium 9.1 mg/dL (8.5-10.5); Carbon Dioxide 29 mmol/L (22-29); Chloride 97 mmol/L (98-107); Globulin 3.1 g/dL (1.3-4.6); Glucose 92 mg/dL (65-115); Lipase 45 U/L (13-60); Osmolality Calculated 284 mOsm/kg (285-295); Potassium 3.9 mmol/L (3.5-5.1); Sodium 139 mmol/L (136-145); Total Protein 7.3 g/dL (6.6-8.7)
--- NOTE | 2020-04-15 15:08 | ED_ITS ---
HPI - Abdominal Pain General: Chief Complaint: Abdominal Pain Stated Complaint: N/V/D X2 WEEKS Time Seen by Provider: 04/15/20 15:01 History of Present Illness: HPI narrative: Patient was recently seen in the ER and was told that he has a bad gallbladder . Patient returns today with complaint of right upper quadrant abdominal pain and states that anytime he eats or drinks anything he throws up. MD elicited complaint: abdominal pain Pertinent past history: none Onset (ago): day(s) Pain Consistency: constant Location: RUQ Severity: severe Quality: aching, dull and burning Radiation: none Exacerbating factors: eating Relieving factors: nothing Review of Systems General: Reports: 10 or more systems reviewed and unremarkable except in HPI and below PFSH ED PFSH: Social History Smoking and tobacco status: never smoked Physical Exam 2 Const: COMMON NORMALS: healthy appearing and well nourished GENERAL APPEARANCE: cooperative, well developed, in distress and ill appearing HENMT: COMMON NORMALS: normocephalic and atraumatic HEAD & SCALP: normal to inspection, normocephalic and atraumatic Eye: GENERAL EYE: appearance normal, both eyes and all related structures Neck/C-Spine: COMMON NORMALS: full ROM, no lymphadenopathy and no meningeal signs GENERAL: Yes normal visual inspection CERVICAL SPINE: Yes cervical ROM normal and Yes normal cervical lordosis Chest: COMMONS NORMALS: normal inspection of the chest and normal palpation of entire chest wall Resp: COMMON NORMALS: normal respiratory effort, clear to auscultation bilate rally and percussion normal AUSCULTATION: clear to auscultation bilaterally PERCUSSION: percussion normal Cardio: COMMON NORMALS: regular rate, regular rhythm, S1 normal heart sound present and S2 normal heart sound present JUGULAR VENOUS DISTENTION: no JVD PALPATION: normal PMI RATE: regular rate RHYTHM: regular rhythm HEART SOUNDS: S1 normal heart sound present and S2 normal heart sound present GI: COMMON NORMALS: Soft to palpation and No hepatosplenomegaly present INSPECTION: Yes normal to inspection PALPATION: Yes Soft to palpation and Yes No hepatosplenomegaly present PERCUSSION: normal to percussion : COMMON NORMALS: Yes no CVA tenderness BLADDER/KIDNEY EXAM: Yes no CVA tenderness Back/Pelvis: COMMON NORMALS: no CVA tenderness, thoracic and lumbar spine normal to inspection and thoraco-lumbar ROM normal Extremity: COMMON NORMALS: normal to inspection, full ROM and capillary refill normal Neuro: MENINGEAL SIGNS: Yes no meningeal signs Skin: COMMON NORMALS: no rashes or lesions noted, no wounds and turgor normal GENERAL SKIN EXAM: no rashes or lesions noted, elasticity normal and turgor normal LESIONS: no lesions RASHES: no rashes TRAUMA: no lacerations or abrasions HAIR: normal NAILS: normal Course Vital Signs: Vital signs: Vital Signs Temperature 98.4 F 04/15/20 12:24 Pulse Rate 54 L 04/15/20 15:35 Respiratory Rate 20 H 04/15/20 15:35 Blood Pressure 132/74 04/15/20 15:35 Pulse Oximetry 97 04/15/20 15:35 MDM - Abdominal Pain Lab Data: Labs: Lab Results 04/15/20 04/15/20 04/15/20 Range/Units 13:47 13:47 13:47 WBC 4.8 (4.0-10.0) 10^3/ uL RBC 4.73 (4.1-5.3) 10^6/u L Hgb 14.0 (11.7-16.6) g/dL Hct 42.8 (42.0-52.0) % MCV 90.5 (80-94) fL MCH 29.6 (28.0-34.0) pg MCHC 32.7 (30.0-36.0) g/dL RDW 12.8 (12.1-15.1) % Plt Count 204 (130-400) 10^3/c mm MPV 10.2 (7.4-10.4) fL Neut % (Auto) 57.2 % Lymph % (Auto) 29.9 % [place] % (Auto) 9.2 % Eos % (Auto) 2.5 % Baso % (Auto) 1.0 % Neut # (Auto) 2.7 (1.8-7.7) 10^3/u L Lymph # (Auto) 1.4 (0.8-4.8) 10^3/u L [place] # (Auto) 0.4 (0.2-0.9) 10^3/u L Eos # (Auto) 0.1 (0.0-0.8) 10^3/u L Baso # (Auto) 0.1 (0.0-0.1) 10^3/u L Nucleated RBC % (a uto) 0 % Nucleated RBCs # 0.0 /100WBC PT 12.90 (10.5-13.3) SECO NDS INR 0.94 (0.8-1.2) Sodium 139 (136-145) mmol/L Potassium 3.9 (3.5-5.1) mmol/L Chloride 97 L (98-107) mmol/L Carbon Dioxide 29 (22-29) mmol/L Anion Gap 16.9 (5-19) BUN 8 (6-20) mg/dL Creatinine 0.8 (0.7-1.2) mg/dL GFR Calculation 100.0 (90-130) mL/min Glucose 92 (65-115) mg/dL Calculated Osmolal ity 284 L (285-295) mOsm/k g Calcium 9.1 (8.5-10.5) mg/dL Total Bilirubin 1.0 (0.15-1.2) mg/dL AST 28 (0-40) U/L ALT 34 (0-41) U/L Alkaline Phosphata se 100 (40-130) IU/L Troponin T Baselin e (0-15) ng/L NT-Pro-B Natriuret Pep (0-125) pg/mL Total Protein 7.3 (6.6-8.7) g/dL Albumin 4.2 (3.5-5.2) g/dL Globulin 3.1 (1.3-4.6) g/dL Lipase 45 (13-60) U/L 04/15/20 04/15/20 Range/Units 13:47 13:47 WBC (4.0-10.0) 10^3/ uL RBC (4.1-5.3) 10^6/u L Hgb (11.7-16.6) g/dL Hct (42.0-52.0) % MCV (80-94) fL MCH (28.0-34.0) pg MCHC (30.0-36.0) g/dL RDW (12.1-15.1) % Plt Count (130-400) 10^3/c mm MPV (7.4-10.4) fL Neut % (Auto) % Lymph % (Auto) % [place] % (Auto) % Eos % (Auto) % Baso % (Auto) % Neut # (Auto) (1.8-7.7) 10^3/u L Lymph # (Auto) (0.8-4.8) 10^3/u L [place] # (Auto) (0.2-0.9) 10^3/u L Eos # (Auto) (0.0-0.8) 10^3/u L Baso # (Auto) (0.0-0.1) 10^3/u L Nucleated RBC % (a uto) % Nucleated RBCs # /100WBC PT (10.5-13.3) SECO NDS INR (0.8-1.2) Sodium (136-145) mmol/L Potassium (3.5-5.1) mmol/L Chloride (98-107) mmol/L Carbon Dioxide (22-29) mmol/L Anion Gap (5-19) BUN (6-20) mg/dL Creatinine (0.7-1.2) mg/dL GFR Calculation (90-130) mL/min Glucose (65-115) mg/dL Calculated Osmolal ity (285-295) mOsm/k g Calcium (8.5-10.5) mg/dL Total Bilirubin (0.15-1.2) mg/dL AST (0-40) U/L ALT (0-41) U/L Alkaline Phosphata se (40-130) IU/L Troponin T Baselin e 17 H (0-15) ng/L NT-Pro-B Natriuret Pep 21 (0-125) pg/mL Total Protein (6.6-8.7) g/dL Albumin (3.5-5.2) g/dL Globulin (1.3-4.6) g/dL Lipase (13-60) U/L Discharge Plan Discharge Patient Disposition: Admitted As Inpatient Clinical Impression: Biliary colic Cholecystolithiasis Qualifiers: Cholecystitis presence: without cholecystitis Biliary obstruction: without biliary obstruction Qualified Code(s): K80.20 - Calculus of gallbladder without cholecystitis without obstruction Condition: Fair Referrals: Clarence Pulliam [Primary Care Provider] - Coding Level of Care Code 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
--- NOTE | 2020-04-15 15:13 | XR_ITS ---
WS: [id number] PORTABLE CHEST HISTORY: n/v/d COMPARISON: 10/23/2019 Lungs are clear and well expanded. No pleural effusion or pneumothorax. Cardiac size: Normal. Mediastinum/Aorta: Normal mediastinum. No osseous abnormality seen. XR/XR chest 1V portable [id number] IMPRESSION: Unremarkable portable chest.
--- NOTE | 2020-04-15 15:16 | ECG_ITS ---
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 Measurements Intervals [place] Rate: 54 P: 29 [place]: 171 QRS: 51 QRSD: 93 T: 48 QT: 429 QTc: 407 Interpretive Statements SINUS BRADYCARDIA Compared to ECG 04/13/2020 13:31:34 Sinus arrhythmia no longer present Electronically Signed On 04-15-2020 21:14:02 CDT by Javier Cornell M.D. [email or web address]/[id number]
--- NOTE | 2020-04-15 15:17 | US_ITS ---
WS: [id number] RIGHT UPPER QUADRANT ULTRASOUND HISTORY: biliary colic COMPARISON: 04/13/2020 Liver: 18.4 cm in length. Liver is enlarged with poor visualization due to marked attenuation of hepa tic steatosis. Gallbladder: Patient has known cholelithiasis. There are numerous stones in the gallbladder with shad owing. Gallbladder is not distended. No wall thickening. CBD: Not visualized. Pancreas: Not visualized. Right kidney: 11.8 cm in length. Normal echogenicity with no mass or hydronephrosis. Aorta and IVC: Poorly visualized. No ascites. US/US gall bladder [id number] IMPRESSION: 1. Limited evaluation of the RIGHT upper quadrant. 2. Cholelithiasis. Numerous stones in a nondistended gallbladder. No wall thic kening. 3. Hepatic steatosis. 4. Common bile duct not visualized.
[2020-04-15] MEDS: ondansetron 2 mg/ML SDV 2 mL 4 MG IM (15:32)
[2020-04-15] MEDS: morphine 4 mg/mL SDV 1 mL IVP (15:32)
[2020-04-15] MEDS: sodium chloride 0.9% 1,000 ML 999 ML IV (15:33)
--- NOTE | 2020-04-15 15:39 | PC.NURSE ---
US at bedside.
[2020-04-15 15:49] LABS: Troponin(5th) Baseline 17 ng/L (0-15)
[2020-04-15 15:55] LABS: INR 0.94 (0.8-1.2)
[2020-04-15 15:57] LABS: NT Pro B Type Natriuretic Pept 21 pg/mL (0-125)
--- NOTE | 2020-04-15 17:16 | ECG_ITS ---
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 Measurements Intervals [place] Rate: 51 P: 23 [place]: 161 QRS: 50 QRSD: 92 T: 43 QT: 440 QTc: 408 Interpretive Statements SINUS BRADYCARDIA Compared to ECG 04/15/2020 15:31:41 No significant changes Electronically Signed On 04-15-2020 21:14:51 CDT by Javier Cornell M.D. [email or web address] at [facility] countyRocket [facility].[employer]/store/OM/[id number]
[2020-04-15 17:36] LABS: Add Urine Microscopic? NO
[2020-04-15 17:51] LABS: Bilirubin Urine Neg (NEGATIVE); Blood Urine Neg (Negative); Glucose Urine UA Norm (Normal); Ketones Urine 2+ (Negative); Leukocyte Esterase Urine Negative (Negative); Nitrate Urine Negative (Negative); Protein Urine Neg (Negative); Specific Gravity, Urine 1.015 (1.005-1.030); Urine Appearance Clear (CLEAR); Urine Color Yellow (Yellow); Urobilinogen Urine Norm (Negative); pH Urine 6 (5-7)
--- NOTE | 2020-04-15 18:13 | PM.HP ---
Providers/Chief Complaint Admitting Physician: Ever Hooker MD Primary Care Provider: Clarence Pulliam Chief Complaint: N/V/D X2 WEEKS History of Present Illness Ronald Bowen is a 54 year old male who had initially been dealing with abdominal pain, nausea vomiting and diarrhea where he has 3-4 loose bowel movement every time he ate over the last 2 weeks. Patient was in the ER 2 days ago with persistent abdominal pain and CT abdomen pelvis and ultrasound showed gallstones. Over the last 3 to 4 days has not been able to keep any food down and therefore his diarrhea has resolved. No fevers chills or jaundice. Review of Systems General: Reports: 10 or more systems reviewed and unremarkable except in HPI and below Medications/Allergies Home Medications Medication Instructions Recorded Confirmed Last Taken Type albuterol sulfate 1 inh INHALATION QID PRN 04/13/20 04/15/20 Unknown History albuterol sulfate 2.5 mg INHALATION Q6H PRN 04/13/20 04/15/20 Unknown History ascorbic acid (vitamin C) [Vitamin 500 mg PO DAILY 04/13/20 04/15/20 04/14/20 History C] doxycycline hyclate 100 mg PO BID 14 Days #28 cap 04/13/20 04/15/20 Unknown Rx hydrochlorothiazide 12.5 mg PO DAILY 04/13/20 04/15/20 04/14/20 History ipratropium bromide 2.5 ml INHALATION Q6H PRN 04/13/20 04/15/20 Unknown History lansoprazole [Prevacid] 60 mg PO DAILY #30 cap 04/13/20 04/15/20 04/15/20 Rx ondansetron HCl [Zofran] 4 mg PO BID #30 tab 04/13/20 04/15/20 Unknown Rx tiotropium-olodaterol [Stiolto 2 puff INHALATION DAILY 04/13/20 04/15/20 04/15/20 History Respimat] Allergies Allergy/AdvReac Type Severity Reaction Status Date / Time No Known Allergies Allergy Unverified 04/15/20 15:24 PFSH Acute PFSH: Medical History COPD (chronic obstructive pulmonary disease) GERD (gastroesophageal reflux disease) Hypertension Surgical History History of knee surgery History of lung biopsy History of surgery on wrist Social History Smoking and tobacco status: never smoked Vitals/I&O/Wt Last Vital Signs Temp 97.8 F 04/15/20 17:31 Pulse 88 04/15/20 17:31 Resp 18 04/15/20 17:31 BP 125/75 04/15/20 17:31 Pulse Ox 95 04/15/20 17:31 04/15/20 04/15/20 04/15/20 06:59 14:59 22:59 Intake Total 1000 / 1000 Balance 1000 / 1000 Weight last 48 hrs Weight 272 lb Physical Exam Narrative: EXAM NARRATIVE: HEENT: Normocephalic Eye: Sclera /conjunctiva normal Respiratory and chest: Bilateral clear breath sounds on auscultation Cardiovascular: Normal S1 and S2 heart sounds Abdomen: Soft to palpation, mildly tender right upper quadrant, no guarding or rigidity Neurological: Oriented to place person and time Skin: Intact, no lesions appreciated on gross exam Data : 04/15/20 13:47 04/15/20 13:47 Micro: Microbiology 04/15/20 15:30 Blood Culture - Preliminary Blood SPECIMEN COLLECTED 04/15/20 13:47 Blood Culture - Preliminary Blood SPECIMEN COLLECTED A&P Assessment and plan (1) Cholelithiasis: 54-year-old gentleman with right-sided abdominal pain associated nausea and vomiting. He states pain is worse after eating. Ultrasound showed gallstones. LFTs, lipase were normal. Discussed options with the patient. He would like to proceed with surgery Plan for laparoscopic possible open cholecystectomy tomorrow Procedure, risks, benefits and alternatives have been discussed with the patient who wishes to proceed with surgery. Status: Acute Attestations Medical Necessity Statement*: Symptomatic cholelithiasis Coding Level of Care Code Acute Sports Media for [facility] Diagnoses Cholelithiasis K80.20
[2020-04-15] MEDS: sodium chloride 0.9% 1,000 ML 125 ML IV (18:24)
[2020-04-15] MEDS: famotidine 20 mg/2 mL INJ IVP (20:16)
[2020-04-15 20:17] LABS: Troponin 5 6HR 11.76 ng/L (0-15)
[2020-04-15 21:03] LABS: Troponin 5 6HR Delta -5.24 ng/L (0-12)
--- NOTE | 2020-04-15 21:16 | ECG_ITS ---
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 Measurements Intervals [place] Rate: 46 P: 14 [place]: 174 QRS: 48 QRSD: 92 T: 46 QT: 428 QTc: 376 Interpretive Statements SINUS BRADYCARDIA Compared to ECG 04/15/2020 17:15:19 No significant changes Electronically Signed On 04-16-2020 21:52:08 CDT by Javier Cornell M.D. [email or web address] hospital.[email or web address]/[id number]
[2020-04-16] VITALS (16 sets, daily range): BP systolic 113–166; BP diastolic 57–107; PULSE 46–68; RESP 12–18; TEMP 35.9–36.6; O2SAT 95–100
[2020-04-16] MEDS: D5-NS 0.45% + KCL 20 mEq 20 MEQ/1,000 ML BAG 100 MEQ IV (06:00)
[2020-04-16] MEDS: famotidine 20 mg/2 mL INJ IVP (06:07)
--- NOTE | 2020-04-16 06:55 | PM.PN ---
Subjective Subjective: Interval history: no issues overnight Vitals/I&O/Wt Last Vital Signs Temp 97.6 F 04/16/20 04:00 Pulse 46 L 04/16/20 04:00 Resp 12 04/16/20 04:00 BP 120/74 04/16/20 04:00 Pulse Ox 96 04/16/20 04:00 04/15/20 04/15/20 04/16/20 14:59 22:59 06:59 Intake Total 1000 / 1000 0 / 1000 Output Total 400 / 400 Balance 1000 / 600 -400 / 600 Weight last 48 hrs Weight 272 lb Physical Exam Narrative: EXAM NARRATIVE: Abdomen: soft Data : 04/15/20 13:47 04/15/20 13:47 Micro: Microbiology 04/15/20 15:30 Blood Culture - Preliminary Blood SPECIMEN COLLECTED 04/15/20 13:47 Blood Culture - Preliminary Blood SPECIMEN COLLECTED A&P Assessment and plan (1) Cholelithiasis: Plan for lap possible open cholecystectomy Status: Acute Attestations Medical Necessity Statement*: lap luke Coding Level of Care Code Acute Cook Chief for [facility] [place] Ted Diagnoses Cholelithiasis K80.20
[2020-04-16] MEDS: sodium chloride 0.9% 1,000 ML 30 ML IV (07:02)
--- NOTE | 2020-04-16 07:19 | ANES.PREANE2 ---
Pre-Anesthetic Assessment Pre-Anesthetic Assessment: Height/Weight: Height 1.78 m Weight 123.377 kg Temp Pulse Resp BP Pulse Ox 97.7 F 54 L 18 134/69 97 04/16/20 07:00 04/16/20 07:00 04/16/20 07:00 04/16/20 07:00 04/16/20 07:00 Preop Diagnosis: Cholelithiasis Proposed Procedure: Operation Date: 04/16/20 07:20 Proposed Procedures p Laparoscopic Cholecystectomy(Not Applicable) - Ever Hooker MD Familial anesthetic complications: Difficult intubatio n- will used glidescope Was Beta Ye taken within 24 hours: N/A Last intake: Intake Last Liquid Date 04/15/20 Last Liquid Time 19:00 Last Solid Date 04/15/20 Last Solid Time 07:00 Social: Social History: No alcohol and No tobacco Exam: Pre-Anes Outpt Exam: alert, oriented x 3, clear to auscultation bilaterally and regular rate & rhythm Airway: Cervical ROM: WNL MP: 4 Additional comments: large neck and tongue Pulmonary: Pulmonary: COPD Comments: recently took high dose steroids CV/HEM: CV/HEM: HTN GI: GI: GERD Comments: eosinophilic esophagitis Anesthetic Plan: ASA status: 2 Anesthesia: General Meds/Allergies Current Medications: Current Medications Generic Name Dose Route Start Last Admin Trade Name Freq PRN Reason Stop Dose Admin Famotidine 20 mg 04/15/20 18:30 04/16/20 06:07 Pepcid Inj IVP 20 mg Q12H CHIOMA Administration Potassium Chloride /Dextrose/Sod Cl 20 meq in 1,000 m ls @ 100 mls/hr 04/15/20 18:30 04/16/20 06:00 D5-Ns 0.45% + Nick l 20 Meq IV 100 mls/hr .Q10H CHIOMA Administration Sodium Chloride 1,000 mls @ 30 ml s/hr 04/16/20 07:00 04/16/20 07:02 Sodium Chloride 0.9% IV 04/17/20 06:59 30 mls/hr .Q24H CHIOMA Administration PFSH Anesthesia PFSH: Medical History COPD (chronic obstructive pulmonary disease) GERD (gastroesophageal reflux disease) Hypertension Surgical History History of knee surgery History of lung biopsy History of surgery on wrist Social History Smoking and tobacco status: never smoked Data Anesthesia CBC & Chem 7: 04/15/20 13:47 04/15/20 13:47 Other Labs: Laboratory Results - last 48 hr 04/15/20 04/15/20 04/15/20 13:47 13:47 13:47 WBC 4.8 RBC 4.73 Hgb 14.0 Hct 42.8 MCV 90.5 MCH 29.6 MCHC 32.7 RDW 12.8 Plt Count 204 MPV 10.2 Neut % (Auto) 57.2 Lymph % (Auto) 29.9 [place] % (Auto) 9.2 Eos % (Auto) 2.5 Baso % (Auto) 1.0 Neut # (Auto) 2.7 Lymph # (Auto) 1.4 [place] # (Auto) 0.4 Eos # (Auto) 0.1 Baso # (Auto) 0.1 Nucleated RBC % (auto) 0 Nucleated RBCs # 0.0 PT 12.90 INR 0.94 Sodium 139 Potassium 3.9 Chloride 97 L Carbon Dioxide 29 Anion Gap 16.9 BUN 8 Creatinine 0.8 GFR Calculation 100.0 Glucose 92 Calculated Osmolality 284 L Lactate Calcium 9.1 Total Bilirubin 1.0 AST 28 ALT 34 Alkaline Phosphatase 100 Troponin I 6 Hour Troponin I Hi Sens Del Troponin T Baseline Troponin T 120 Minute Delta Troponin T NT-Pro-B Natriuret Pep Total Protein 7.3 Albumin 4.2 Globulin 3.1 Lipase 45 Urine Color Urine Appearance Urine pH Ur Specific [place] Urine Protein Urine Glucose (UA) Urine Ketones Urine Blood Urine Nitrate Urine Bilirubin Urine Urobilinogen Ur Leukocyte Esterase 04/15/20 04/15/20 04/15/20 13:47 13:47 15:30 WBC RBC Hgb Hct MCV MCH MCHC RDW Plt Count MPV Neut % (Auto) Lymph % (Auto) [place] % (Auto) Eos % (Auto) Baso % (Auto) Neut # (Auto) Lymph # (Auto) [place] # (Auto) Eos # (Auto) Baso # (Auto) Nucleated RBC % (auto) Nucleated RBCs # PT INR Sodium Potassium Chloride Carbon Dioxide Anion Gap BUN Creatinine GFR Calculation Glucose Calculated Osmolality Lactate 1.0 Calcium Total Bilirubin AST ALT Alkaline Phosphatase Troponin I 6 Hour Troponin I Hi Sens Del Troponin T Baseline 17 H Troponin T 120 Minute Delta Troponin T NT-Pro-B Natriuret Pep 21 Total Protein Albumin Globulin Lipase Urine Color Urine Appearance Urine pH Ur Specific [place] Urine Protein Urine Glucose (UA) Urine Ketones Urine Blood Urine Nitrate Urine Bilirubin Urine Urobilinogen Ur Leukocyte Esterase 04/15/20 04/15/20 04/15/20 16:34 17:16 19:20 WBC RBC Hgb Hct MCV MCH MCHC RDW Plt Count MPV Neut % (Auto) Lymph % (Auto) [place] % (Auto) Eos % (Auto) Baso % (Auto) Neut # (Auto) Lymph # (Auto) [place] # (Auto) Eos # (Auto) Baso # (Auto) Nucleated RBC % (auto) Nucleated RBCs # PT INR Sodium Potassium Chloride Carbon Dioxide Anion Gap BUN Creatinine GFR Calculation Glucose Calculated Osmolality Lactate Calcium Total Bilirubin AST ALT Alkaline Phosphatase Troponin I 6 Hour 11.76 Troponin I Hi Sens Del -5.24 L Troponin T Baseline Troponin T 120 Minute 11.70 Delta Troponin T -5.30 L NT-Pro-B Natriuret Pep Total Protein Albumin Globulin Lipase Urine Color Yellow Urine Appearance Clear Urine pH 6 Ur Specific [place] 1.015 Urine Protein Neg Urine Glucose (UA) Norm Urine Ketones 2+ H Urine Blood Neg Urine Nitrate Negative Urine Bilirubin Neg Urine Urobilinogen Norm Ur Leukocyte Esterase Negative Micro: Microbiology 04/15/20 15:30 Blood Culture - Preliminary Blood SPECIMEN COLLECTED 04/15/20 13:47 Blood Culture - Preliminary Blood SPECIMEN COLLECTED Cardiac Studies: No Data to Display
--- NOTE | 2020-04-16 07:24 | PM.OP ---
Operative Report Date of procedure: April 16, 2020 Pre-op Diagnosis: Cholelithiasis Post-op diagnosis: same Post-op Diagnosis: Acute calculus cholecystitis Procedure Done: Laparoscopic cholecystectomy Pathology: Gallbladder Surgeon: Ever Hooker Anesthesia: General Estimated blood loss (mL): 25 Condition: stable Disposition: PACU Procedure: The patient was taken to the operating room and was intubated under general anesthesia. After the antibiotic had been administered, the abdomen was prepped and draped in a sterile manner. Using a #15 blade, a 1 centimeter infraumbilical curvilinear incision was made and using an open Chavo technique the peritoneal cavity was entered. A 10 millimeter port was placed and 15 millimeters of pneumoperitoneum was created. A 10 millimeter, 30 degrees scope was then introduced. Three 5 millimeter ports were placed in the epigastric, midclavicular and the anterior axillary line two fingerbreadths below the costal margin on the right side under the direct visualization. Ratcheted forceps were introduced into the lateral most port and was used to retract the fundus of the gallbladder cephalad and using forceps the infundibulum of the gallbladder was retracted laterally. The gallbladder is acutely inflamed. Using L-hook cautery the peritoneum overlying the Calot's triangle was opened medially and laterally until the cystic duct and the cystic artery were skeletonized. Dissection was carried along the body of the gallbladder and after ensuring critical view of safety, 4 clips applied on the cystic duct and 3 clips applied on the cystic artery and cut leaving, 3 clips on the remaining portion of the duct and 2 clips on the remaining portion of the artery. The rest of the gallbladder was dissected off the liver using L-hook cautery. There were couple of openings in the body of the gallbladder since the wall is inflamed resulting in spillage of large amount of stones. There was no bleeding or bile leaking noted from the gallbladder fossa and the clips appeared to be in place. An EndoCatch bag was introduced to remove the gallbladder. After the gallbladder had been removed about 30 minutes was spent and suctioning out every visible gallstone using a 10 mm suction security escort and the peritoneal cavity was irrigated with 1 L of warm saline. All the ports were removed under direct visualization and there was no bleeding noted from the port sites. The fascia of the umbilicus was closed using [id number] 0 Vicryl sutures and the subcutaneous tissue was approximated using 3-0 Vicryl sutures. The skin at all four ports were closed using 4-0 Monocryl and Dermabond. A total of 10 millimeters of 0.5% Marcaine was infiltrated around the port sites. The patient was stable throughout the procedure.
[2020-04-16] MEDS: ondansetron 2 mg/ML SDV 2 mL 4 MG IVP (09:26)
[2020-04-16] MEDS: HYDROcodone-acetaminophen 5-325 mg Tablet 1 TAB PO (10:16)
--- NOTE | 2020-04-16 13:49 | PC.RESP ---
Pulmonary Rehab information sent to patient.
--- NOTE | 2020-04-17 17:27 | PM.DCS ---
Discharge Providers Date of Admission: 04/15/20 16:24 Date of Discharge: April 17, 2020 Attending Provider at Admission: Ever Hooker MD Attending Provider at Discharge: Ever Hooker MD Primary Care Provider: Clarence Pulliam Diagnoses at Discharge Discharge Diagnosis (1) Cholelithiasis: Status: Resolved (2) Status post laparoscopic cholecystectomy: Status: Acute Reason for Visit Reason for Visit: N/V/D X2 WEEKS Hospital Course Discharge Summary: This is a 54-year-old gentleman who presented to the ER with abdominal pain nausea and inability to eat for the last few days. Ultrasound of the gallbladder showed cholelithiasis and patient is tender to palpation in the right upper quadrant. He underwent laparoscopic cholecystectomy. At time of discharge his vital signs are stable he is tolerating a liquid diet and his pain is well controlled with oral pain medications. Discharge Data Data Completed and Pending: Completed Studies During Hospitalization Category Date Time Status XR chest 1V alisson ble [id number] Urgent Exams 04/15/20 15:13 Completed US gall bladder 7 [id number] Urgent Ultrasound 04/15/20 15:17 Completed Pending at discharge Category Date Time Status Blood Culture Sta t Lab 04/15/20 15:30 Results Pathology: Surgic al [PTH] Routine Pth 04/16/20 08:29 Received Vitals: Last Vital Signs Temp 97.8 F 04/16/20 12:00 Pulse 68 04/16/20 12:00 Resp 16 04/16/20 12:00 BP 145/78 04/16/20 12:00 Pulse Ox 96 04/16/20 12:00 Discharge Plan Discharge Patient Disposition: Home, Self-Care Condition: Fair Prescriptions: [place] 5-325 mg tablet 1 tab PO Q6H 7 Days Qty: 20 RF: 0 Zofran 4 mg tablet 4 mg PO Q6H PRN (Reason: nausea and vomiting) Qty: 20 RF: 0 Continued albuterol sulfate 2.5 mg /3 mL (0.083 %) Solution For Nebulization 2.5 mg INHALATION Q6H PRN (Reason: Shortness Of Breath) RF: 0 ascorbic acid (vitamin C) [Vitamin C] 500 mg Tablet 500 mg PO DAILY RF: 0 albuterol sulfate 90 mcg/actuation Hfa Aerosol Inhaler 1 inh INHALATION QID PRN (Reason: Shortness Of Breath) RF: 0 ipratropium bromide 0.02 % Solution 2.5 ml INHALATION Q6H PRN (Reason: Shortness Of Breath) RF: 0 hydrochlorothiazide 12.5 mg Tablet 12.5 mg PO DAILY RF: 0 Stiolto Respimat 2.5-2.5 mcg/actuation Mist 2 puff INHALATION DAILY RF: 0 lansoprazole [Prevacid] 30 mg capsule,delayed release(DR/EC) 60 mg PO DAILY Qty: 30 RF: 0 ondansetron HCl [Zofran] 4 mg tablet 4 mg PO BID Qty: 30 RF: 0 doxycycline hyclate 100 mg capsule 100 mg PO BID 14 Days Qty: 28 RF: 0 Discharge Orders: Discharge Order (Routine); Ordered 04/16/20 Ordered By: Ever Hooker Referrals: Clarence Pulliam [Primary Care Provider] - (Faxed face sheet and information sheet to the [facility] here in [place]. They should call you with an appointment and time for hospital follow up.) Ever Hooker MD [Physician] - 04/30/20 10:45 am (You have an appointment with Dr. Hooker on April 30 at 10:45) Patient Instructions: Hydrocodone/Acetaminophen (By mouth), Ondansetron (By mouth), Cholecystitis (DC), Biliary Colic (GEN), Cholelithiasis (DC) Discharge Date/Time: 04/16/20 13:58 Discharge Attestations Time Spent in Discharge Care*: less than 30 min Quality Metrics Clinical Quality Measures During this hospital stay, did patient experience: None Coding Level of Care Code Acute Industrial [employer] for [facility] Fwd Diagnoses Cholelithiasis K80.20 Status post laparoscopic cholecystectomy Z90.49
== END 2020-04-16 13:58 | disposition home or self-care (01) ==
LOC: ER 16:24 → MEDSURG 17:03
PROVIDERS: Nurse Practitioner Family; Admitting Provider Surgery; Emergency Provider Family Medicine; PCP Internal Medicine; Visit Provider Surgery
PROC: 0FT44ZZ Resection of Gallbladder, Percutaneous Endoscopic Approach (ICD-10-PCS; CPT 47562; principal; 2020-04-16 07:00)
DX: K80.10 Calculus of gallbladder with chronic cholecystitis without obstruction (principal); J44.9 Chronic obstructive pulmonary disease, unspecified; I10 Essential (primary) hypertension; K21.9 Gastro-esophageal reflux disease without esophagitis
CPT/HCPCS: 47562; 12345; 36415; 71045; 76705; 80053; 81003; 83605; 83690; 83880; 84484; 85025; 85610; 87040; 88304; 93005; 94660; 96365; 96366; 96375; 96376; 99284; 99285; G0378; J0330; J0690; J2270; J2370; J2405; J2704; J3010; J3490; J7030

== ENCOUNTER → 2020-08-30 09:31 | Outpatient (BNVA) | payer OTHER, SELFPAY | PROVIDERS: PCP Family Medicine; Referring Provider Family Medicine; Visit Provider Anesthesiology Pain Medicine | DX: M51.16 Intervertebral disc disorders with radiculopathy, lumbar region (principal); M47.816 Spondylosis without myelopathy or radiculopathy, lumbar region; M79.604 Pain in right leg; M79.605 Pain in left leg | CPT/HCPCS: 99203; 99204 ==

== ENCOUNTER → 2020-09-20 11:36 | Outpatient (BNVA) | payer OTHER, SELFPAY | PROVIDERS: PCP Family Medicine; Visit Provider Internal Medicine Pulmonary Disease | DX: Z01.812 Encounter for preprocedural laboratory examination (principal); Z20.828 Contact with and (suspected) exposure to other viral communicable diseases | CPT/HCPCS: 87635 ==

== ENCOUNTER 2020-09-23 12:34 | Outpatient (CLI) | payer OTHER, SELFPAY ==
--- NOTE | 2020-09-23 13:22 | PFTS_ITS ---
Date of Study:09/23/20 Date of Dictation: MECHANICS: Forced vital capacity (FVC) is reduced. Forced expiratory volume in one second (FEV1) is reduced. FEV1/FVC is normal. FLOW VOLUME LOOP: Narrow. LUNG VOLUMES: Not measured DIFFUSING CAPACITY FOR CARBON MONOXIDE: Normal INTERPRETATION: The prebronchodilator spirometry is consistent with severe restriction. The postbronchodilator spirometry is consistent with severe restriction. There is a significant postbronchodilator response. Lung volumes are not measured Gas exchange (DLCO) is normal. MTDD
== END 2020-09-23 12:35 | disposition home or self-care (01) ==
LOC: RT 12:38
PROVIDERS: PCP Family Medicine; Visit Provider Internal Medicine Pulmonary Disease
DX: R06.02 Shortness of breath (principal)
CPT/HCPCS: 94060; 94618; 94729; J7611

== ENCOUNTER → 2020-09-27 09:27 | Outpatient (BNVA) | payer OTHER, SELFPAY | PROVIDERS: PCP Family Medicine; Visit Provider Anesthesiology Pain Medicine | DX: M51.16 Intervertebral disc disorders with radiculopathy, lumbar region (principal); M79.604 Pain in right leg; M79.605 Pain in left leg; M54.9 Dorsalgia, unspecified | CPT/HCPCS: 99213 ==

== ENCOUNTER 2020-10-26 07:42 | Outpatient (CLI) | payer OTHER, SELFPAY ==
--- NOTE | 2020-10-26 08:00 | CT_ITS ---
WS: [id number] CT LUMBAR SPINE TECHNIQUE: Noncontrast CT of the lumbar spine with coronal and sagittal reformatted images. CLINICAL INFORMATION: M54.16 - Radiculopathy, lumbar region COMPARISON: None. DLP: 2004.[address] scans at [facility] use at least one of these dose optimization techniques: automat ed exposure control; mA and/or kV adjustment per patient size (includes targeted exams where dose is matched to clinical indication); or iterative reconstruction. FINDINGS: Normal lumbar alignment. No acute compression. Minimal disc bulging L4-L5 and L5-S1. L1-L2: Normal. L2-L3: No significant disc bulging. Mild facet arthropathy. Spinal canal and foramen are patent. L3-L4: Mild annular bulging. Moderate facet arthropathy. Mild left and no significant right foraminal narrowing. Moderate facet arthropathy. L4-L5: Mild disc bulging with slight effacement of ventral thecal sac. Slight impingement on the suba rticular recess and traversing L5 nerve roots, left greater than right. Moderate facet arthropathy. M ild right and no significant left foraminal narrowing. L5-S1: Tiny central protrusion. Slight effacement of ventral thecal sac. Slight contact of the left S 1 nerve root. Foramen are patent. Moderate facet arthropathy. Visualized pelvic bony structures: Normal. Paravertebral soft tissues: Normal. CT/CT lumbar spine wo con* [id number] IMPRESSION: 1. Mild lumbar curve. No acute compression. No high-grade central canal stenos is. 2. Mild annular bulging L4-5 with a tiny shallow left pericentral protrusion. Impingement traversing left L5 nerve root. Mild central canal stenosis. 3. Mild right L4-5 foraminal narrowing. 4. Tiny central disc protrusion L5-S1 with slight contact of the traversing S1 nerve roots left greater than right. 5. Mild to moderate facet arthropathy L3-L5.
== END 2020-10-26 07:43 | disposition home or self-care (01) ==
PROVIDERS: PCP Family Medicine; Visit Provider Anesthesiology Pain Medicine
DX: M51.16 Intervertebral disc disorders with radiculopathy, lumbar region (principal); J84.9 Interstitial pulmonary disease, unspecified; M54.9 Dorsalgia, unspecified; M79.604 Pain in right leg; M79.605 Pain in left leg
CPT/HCPCS: 72131; 99213; 99214

== ENCOUNTER 2020-10-26 08:33 | Outpatient (CLI) | payer OTHER, SELFPAY ==
--- NOTE | 2020-10-26 10:00 | CT_ITS ---
WS: [id number] CT CHEST TECHNIQUE: Noncontrast high-resolution CT of the chest with coronal and sagittal reformatted images. Inspiratory and expiratory imaging with prone imaging. CLINICAL INFORMATION: restrictive lung disease progression COMPARISON: CT chest 07/05/2017 and 08/13/2019 DLP: 1972.[address] scans at [facility] use at least one of these dose optimization techniques: automat ed exposure control; mA and/or kV adjustment per patient size (includes targeted exams where dose is matched to clinical indication); or iterative reconstruction. FINDINGS: Lungs well aerated. No acute pulmonary infiltrates. No consolidation or pleural fluid. No mediastinal or hilar lymphadenopathy. No axillary lymphadenopathy. High-resolution images demonstrates no eviden ce of progressed interstitial lung disease. No honeycombing. No significant air trapping on the expir atory imaging today. Previously described mosaic perfusion pattern is not visualized today on the exp iratory imaging. Adrenal glands are normal. Cholecystectomy clips. Hypertrophic changes mid thoracic spine. CT/CT chest wo con [id number] IMPRESSION: 1. No evidence of interstitial lung disease. No honeycombing. 2. Previously described air trapping with mosaic perfusion pattern not seen to day. No significant air trapping. 3. Lungs are well aerated. No acute pulmonary infiltrates. 4. No mediastinal or hilar lymphadenopathy.
== END 2020-10-26 08:34 | disposition home or self-care (01) ==
LOC: RADWPI 08:35
PROVIDERS: PCP Family Medicine; Visit Provider Internal Medicine Pulmonary Disease
DX: J84.9 Interstitial pulmonary disease, unspecified (principal)
CPT/HCPCS: 71250

== ENCOUNTER → 2020-11-23 10:12 | Outpatient (BNVA) | payer OTHER, SELFPAY | PROVIDERS: PCP Family Medicine; Visit Provider Anesthesiology Pain Medicine | DX: M51.16 Intervertebral disc disorders with radiculopathy, lumbar region (principal); M54.9 Dorsalgia, unspecified; M79.605 Pain in left leg; M79.604 Pain in right leg | CPT/HCPCS: 99213 ==

== ENCOUNTER 2020-11-25 15:24 | Outpatient (CLI) | payer OTHER, SELFPAY ==
[2020-11-26 14:08] LABS: Anti-Double Strand DNA AB <1 IU/mL; Jo-1 Antibody <1.0 NEG AI (<1.0 NEG); SM/RNP Antibodies <1.0 NEG AI (<1.0 NEG); SS-B/LA IGG <1.0 NEG AI (<1.0 NEG); Scleroderma Ab(Scl-70) Ab <1.0 NEG AI (<1.0 NEG); Ss-A/Ro Igg <1.0 NEG AI (<1.0 NEG)
== END 2020-11-25 15:25 | disposition home or self-care (01) ==
PROVIDERS: PCP Family Medicine; Visit Provider Internal Medicine Pulmonary Disease
DX: J98.4 Other disorders of lung (principal); J44.9 Chronic obstructive pulmonary disease, unspecified
CPT/HCPCS: 36415; 84182; 86225; 86235

== ENCOUNTER → 2022-03-13 08:37 | Outpatient (BNVA) | payer OTHER, SELFPAY | PROVIDERS: PCP Family Medicine; Visit Provider Internal Medicine Pulmonary Disease | DX: J44.9 Chronic obstructive pulmonary disease, unspecified (principal); J98.4 Other disorders of lung; G72.0 Drug-induced myopathy; T38.0X5A Adverse effect of glucocorticoids and synthetic analogues, initial encounter; Z91.09 Other allergy status, other than to drugs and biological substances; G47.33 Obstructive sleep apnea (adult) (pediatric); K21.9 Gastro-esophageal reflux disease without esophagitis; I10 Essential (primary) hypertension | CPT/HCPCS: 99214 ==

== ENCOUNTER 2022-05-04 13:16 | Outpatient (CLI) | payer OTHER, SELFPAY ==
--- NOTE | 2022-05-04 | XR_ITS ---
WS: [id number] Chest 2 views, 05/04/2022 Clinical Data: dyspnea Comparison: Portable chest, 04/15/2020. Findings: No nodules, masses or effusions are seen. The heart is normal. The pulmonary vascularity is not increased. No pneumonia or pneumothorax is seen. XR/XR chest 2V* [id number] Impression: Negative chest.
--- NOTE | 2022-05-04 14:10 | PFTS_ITS ---
Date of Study:05/04/22 Date of Dictation: 05/06/2022 MECHANICS: Postbronchodilator forced vital capacity (FVC) is reduced. Postbronchodilator forced expiratory volume in one second (FEV1) is moderately reduced. FEV1/FVC is normal. There is significant postbronchodilator response FLOW VOLUME LOOP: Scooping of expiratory limb suggestive of airway obstruction LUNG VOLUMES:not measured DIFFUSING CAPACITY FOR CARBON MONOXIDE: normal . INTERPRETATION: The spirometry showed moderate restriction. There is significant postbronchodilator response. Lung volumes not measured. Gas transfer is normal. Clinical correlation recommended. MTDD
== END 2022-05-04 13:17 | disposition home or self-care (01) ==
LOC: RT 13:17
PROVIDERS: PCP Family Medicine; Visit Provider Internal Medicine Pulmonary Disease
DX: R06.00 Dyspnea, unspecified (principal); J98.4 Other disorders of lung
CPT/HCPCS: 71046; 94060; 94618; 94729

== ENCOUNTER → 2022-05-22 08:33 | Outpatient (BNVA) | payer OTHER, SELFPAY | PROVIDERS: PCP Family Medicine; Visit Provider Internal Medicine Pulmonary Disease | DX: J44.9 Chronic obstructive pulmonary disease, unspecified (principal); R06.02 Shortness of breath; J98.4 Other disorders of lung; G72.0 Drug-induced myopathy; T38.0X5A Adverse effect of glucocorticoids and synthetic analogues, initial encounter; Z91.09 Other allergy status, other than to drugs and biological substances; G47.33 Obstructive sleep apnea (adult) (pediatric) | CPT/HCPCS: 36415; 82785; 85025; 86003; 99214 ==

== ENCOUNTER 2022-12-28 12:38 | Outpatient (CLI) | payer OTHER, SELFPAY ==
--- NOTE | 2022-12-28 12:49 | CT_ITS ---
WS: [id number] CT CHEST WITH INTRAVENOUS CONTRAST HISTORY: ABNORMAL CXR TECHNIQUE: Contiguous 5 mm axial imaging performed on the thorax. Coronal and sagittal reformats are submitted. All CT scans at [facility] use at least one of these dose optimization techniques: automated exposure control; mA and/or kV adjustment per patient size (includes targeted exams where dose is matched to clinical indication); or iterative reconstruction. CONTRAST: Omnipaque 350; 95 mL IV. DLP: 705.16 mGy.cm COMPARISON: 10/26/2020 Lungs and central airway: Mild breathing motion artifact. Mild pulmonary hyperexpansion. No mass or p neumonia. No bronchiectasis. Pleura: Normal. No pleural effusion. Heart and pericardium: Mild LEFT heart enlargement. No pericardial effusion Mediastinum and [place]: No mediastinum or hilar adenopathy. Vessels: Normal size aortic and pulmonary artery. No coronary artery calcifications. Chest wall and lower neck: No soft tissue masses. Upper abdomen: Small hiatal hernia. Mild hepatic steatosis. Prior cholecystectomy. No adrenal mass. Osseous structures: Mild increase in thoracic kyphosis. CT/CT chest w con* [id number] IMPRESSION: 1. No mass or pneumonia. History provided states abnormal chest radiograph. Th ere are no abnormal chest radiographs available stating the area of concern. If these become available the chest CT can be reviewed with respect to the abnorm ality. 2. Mild cardiomegaly. 3. Prior cholecystectomy.
[2022-12-28] MEDS: iohexol 350 mg/mL 500 mL Btl (per mL) IV (13:01)
== END 2022-12-28 12:39 | disposition home or self-care (01) ==
LOC: RAD 12:42
PROVIDERS: PCP Family Medicine; Visit Provider Family Medicine
DX: R93.89 Abnormal findings on diagnostic imaging of other specified body structures (principal); Z90.49 Acquired absence of other specified parts of digestive tract; I51.7 Cardiomegaly
CPT/HCPCS: 71260; Q9967

== ENCOUNTER → 2023-05-07 10:22 | Outpatient (BNVA) | payer OTHER, SELFPAY | PROVIDERS: PCP Family Medicine; Visit Provider Internal Medicine Cardiovascular Disease | DX: I11.9 Hypertensive heart disease without heart failure (principal); R00.1 Bradycardia, unspecified; J84.9 Interstitial pulmonary disease, unspecified; J44.9 Chronic obstructive pulmonary disease, unspecified; G47.33 Obstructive sleep apnea (adult) (pediatric); R07.9 Chest pain, unspecified | CPT/HCPCS: 93005; 99204 ==

== ENCOUNTER → 2023-05-07 11:31 | Outpatient (BNVA) | payer OTHER, SELFPAY | PROVIDERS: PCP Family Medicine; Visit Provider Internal Medicine Cardiovascular Disease | DX: R07.9 Chest pain, unspecified (principal); R53.1 Weakness; N18.9 Chronic kidney disease, unspecified; E78.5 Hyperlipidemia, unspecified; R00.1 Bradycardia, unspecified | CPT/HCPCS: 93005 ==

== ENCOUNTER 2023-05-25 07:20 | Outpatient (CLI) | payer OTHER, SELFPAY ==
--- NOTE | 2023-05-25 07:45 | USCV_ITS ---
Ronald Bowen Age: 57 Gender: M : 1965 Exam Date: 05/25/2023 07:36 Ordering Phys: Sintia Zavaleta MD ([email or web address]) Technologist: CT Exam Location: [facility] [place] Indication: htn BP: / HR: Rhythm: Sinus Technical Quality: Adequate MEASUREMENTS (Male / Female) Normal Values FINDINGS Left Ventricle Normal left ventricular size and systolic function, EF 55% (visual).no regional wall motion abnormalities. Right Ventricle The right ventricle is normal in size and function. Right Atrium The right atrium is normal in size. Left Atrium The left atrium is normal in size. Mitral Valve No gross abnormalities noted . Aortic Valve Thickened aortic valve. Tricuspid Valve No gross abnormalities noted Pulmonic Valve No gross abnormalities noted Pericardium Normal pericardium without effusion. Aorta Normal ascending aorta dimension. IVC The inferior vena cava appears normal. CONCLUSIONS Normal left ventricular size and systolic function, EF 55% (visual). No regional wall motion abnormalities. Normal cardiac chamber sizes. No gross valvular abnormalities Thickened aortic valve. There is no pericardial effusion. There are no intracardiac masses. No similar previous studies are available for comparison Dr Sintia Zavaleta MD FAC (Electronically Signed) Final Date: 25 May 2023 18:11 S
== END 2023-05-25 07:21 | disposition home or self-care (01) ==
PROVIDERS: PCP Family Medicine; Visit Provider Internal Medicine Cardiovascular Disease
DX: R06.09 Other forms of dyspnea (principal); I35.8 Other nonrheumatic aortic valve disorders
CPT/HCPCS: 93306; 99204

== ENCOUNTER → 2023-11-08 10:25 | Outpatient (BNVA) | payer OTHER, SELFPAY | PROVIDERS: PCP Family Medicine; Referring Provider Family Medicine; Visit Provider Anesthesiology Pain Medicine | DX: M51.16 Intervertebral disc disorders with radiculopathy, lumbar region (principal); M79.604 Pain in right leg; M79.605 Pain in left leg | CPT/HCPCS: 99214 ==

== ENCOUNTER 2023-11-22 14:20 | Outpatient (CLI) | payer OTHER, SELFPAY ==
--- NOTE | 2023-11-22 14:30 | CT_ITS ---
WS: [id number] CT LUMBAR SPINE, noncontrast. HISTORY: M51.16 - Intervertebral disc disorders with radiculopathy... TECHNIQUE: Contiguous 2.0 mm axial imaging are performed. Sagittal and coronal reformats are submitte d and reviewed. All CT scans at [facility] use at least one of these dose optimization techni ques: automated exposure control; mA and/or kV adjustment per patient size (includes targeted exams w here dose is matched to clinical indication); or iterative reconstruction. IV contrast: None DLP: 1423.52 mGy.cm COMPARISON: 10/26/2020 Normal lumbar alignment. No fractures or marrow changes. Mild facet joint arthritis at L4-5 and L5-S1 . No pars defects. L1-2: Mild disc bulging. No stenosis. L2-3: Mild disc bulging with a shallow RIGHT foraminal disc protrusion. No significant stenosis. L3-4: Diffuse mild annular disc bulging, ligamentum flavum and facet arthritis. Disc encroachment upo n the ventral thecal sac and subarticular recesses. Mild to moderate central, bilateral subarticular recess and mild foraminal stenosis. L4-5: Diffuse moderate annular disc bulging with ligamentum flavum and facet arthritis. Disc encroach ment upon the thecal sac causing moderate central, bilateral subarticular recess and mild foraminal s tenosis. L5-S1: Broad-based disc bulging without stenosis. Visualized retroperitoneum is normal. IMPRESSION: 1. No lumbar spine fracture. 2. L3-4 and L4-5: Diffuse annular disc bulging with ligamentum flavum and facet arthritis. Moderate central, bilateral subarticular recess and mild foraminal stenosis at L4-5 with mild to moderate cent ral, bilateral subarticular recess and mild foraminal stenosis at L3-4. 3. Shallow RIGHT foraminal disc protrusion at L2-3.
--- NOTE | 2024-01-04 08:01 | PC.PHAR ---
Addendum entered by Rhea Wayne 01/04/24 08:14: pt not in room on medsurg-talked to [facility] on med[facility]urg states the pt is not been on that floor states they are trying to get that pt removed from the board- Original Note: [facility]
== END 2023-11-22 23:31 | disposition home or self-care (01) ==
LOC: MEDSURG 01-04 08:56 → RAD 01-04 11:00
PROVIDERS: PCP Family Medicine; Visit Provider Anesthesiology Pain Medicine
DX: M51.16 Intervertebral disc disorders with radiculopathy, lumbar region (principal); M48.061 Spinal stenosis, lumbar region without neurogenic claudication; M47.26 Other spondylosis with radiculopathy, lumbar region
CPT/HCPCS: 72131

== ENCOUNTER → 2024-01-10 09:08 | Outpatient (BNVA) | payer OTHER, SELFPAY | PROVIDERS: PCP Family Medicine; Referring Provider Family Medicine; Visit Provider Internal Medicine Pulmonary Disease | DX: R06.02 Shortness of breath (principal); J44.9 Chronic obstructive pulmonary disease, unspecified; J98.4 Other disorders of lung; G72.0 Drug-induced myopathy; T38.0X5A Adverse effect of glucocorticoids and synthetic analogues, initial encounter; Z91.09 Other allergy status, other than to drugs and biological substances; G47.33 Obstructive sleep apnea (adult) (pediatric); X58.XXXA Exposure to other specified factors, initial encounter; Z99.89 Dependence on other enabling machines and devices | CPT/HCPCS: 99214 ==

== ENCOUNTER → 2024-01-31 09:33 | Outpatient (BNVA) | payer OTHER, SELFPAY | PROVIDERS: PCP Family Medicine; Visit Provider Anesthesiology Pain Medicine | DX: M51.16 Intervertebral disc disorders with radiculopathy, lumbar region (principal); M48.061 Spinal stenosis, lumbar region without neurogenic claudication | CPT/HCPCS: 99214 ==

== ENCOUNTER 2024-09-10 13:06 | Outpatient (CLI) | payer OTHER, SELFPAY ==
--- NOTE | 2024-09-10 13:12 | CT_ITS ---
WS: [id number] CT HEAD TECHNIQUE: Noncontrast CT of the head obtained from the skullbase to the vertex. CLINICAL INFORMATION: TREMOR HEADACHE COMPARISON: None. DLP: 1101.[address] scans at [facility] use at least one of these dose optimization techniques: automated e xposure control; mA and/or kV adjustment per patient size (includes targeted exams where dose is matc hed to clinical indication); or iterative reconstruction. FINDINGS: No evidence of intracranial hemorrhage or mass effect. Ventricular system and basal cisterns are lloyd nt. Mild small vessel changes with mild parenchymal volume loss. No extra-axial fluid collections. No evidence of mass or mass effect. Vascular calcification. Mild mucosal thickening in the ethmoid air cells. Mild mucosal thickening LEFT mastoid tip. CT/CT head wo con* [id number] IMPRESSION: 1. No evidence of intracranial hemorrhage or mass effect. 2. Mild small vessel changes. Mild parenchymal volume loss. 3. Vascular calcification. 4. No acute intracranial findings.
== END 2024-09-10 13:07 | disposition home or self-care (01) ==
PROVIDERS: PCP Family Medicine; Visit Provider Family Medicine
DX: I67.2 Cerebral atherosclerosis (principal); R51.9 Headache, unspecified; R25.1 Tremor, unspecified
CPT/HCPCS: 70450

== ENCOUNTER → 2025-01-19 09:12 | Outpatient (BNVA) | payer OTHER, SELFPAY | PROVIDERS: PCP Family Medicine; Referring Provider Family Medicine; Visit Provider Student in an Organized Health Care Education/Training Program | DX: K42.9 Umbilical hernia without obstruction or gangrene (principal); K40.90 Unilateral inguinal hernia, without obstruction or gangrene, not specified as recurrent | CPT/HCPCS: 99204 ==

== ENCOUNTER 2025-02-04 05:44 | Day surgery (SDC) | payer OTHER, SELFPAY ==
[2025-02-04] VITALS (11 sets, daily range): BP systolic 126–177; BP diastolic 69–91; PULSE 47–81; RESP 10–21; TEMP 36.1–36.6; O2SAT 64–98; BMI 38.7
[2025-02-04] MEDS: sodium chloride 0.9% 1,000 ML 30 ML IV (06:17)
--- NOTE | 2025-02-04 06:34 | ANES.PREANE2 ---
Pre-Anesthetic Assessment Height/Weight: Height 1.78 m Weight 122.47 kg Temp Pulse Resp BP Pulse Ox O2 Del Method 97.9 F 47 L 18 162/91 98 Room Air 02/04/25 06:06 02/04/25 06:06 02/04/25 06:06 02/04/25 06:06 02/04/25 06:06 02/04/25 06:10 Operation Date: 02/04/25 07:00 Proposed Procedures p Open Inguinal Hernia Repair w/ Mesh(Right) - Roque Forrester MD s Open Umbilical Hernia Repair w/ Mesh(Not Applicable) - Roque Forrester MD Last intake: Intake Last Liquid Date 02/03/25 Last Liquid Time 22:30 Last Solid Date 02/03/25 Last Solid Time 19:00 Social No alcohol and No tobacco Exam alert, oriented x 3, clear to auscultation bilaterally and regular rate & rhythm Airway Submandibular: within normal limits Cervical ROM: Other (limited) Mallampati: Class III Pulmonary Chronic Obstructive Pulmonary Disease and Sleep Apnea CV/HEM Hypertension Metabolic Morbid Obesity Anesthetic Plan ASA status: 3 Anesthesia: General (Morning Sun Scope) Medications/Allergies Home Medications ?Medication ?Instructions ?Recorded ?Confirmed ?Last Taken ?Type albuterol sulfate 90 mcg/actuation 1 inh inhalation QID PRN Shortness 04/13/20 02/03/25 02/03/25 History aerosol inhaler Of Breath ascorbic acid (vitamin C) 500 mg 500 mg PO DAILY 04/13/20 02/03/25 02/03/25 History tablet (Vitamin C) hydrochlorothiazide 12.5 mg tablet 25 mg PO DAILY 04/13/20 02/03/25 02/03/25 History ipratropium 0.5 mg-albuterol 3 mg 3 ml inhalation Q4H PRN sob 09/07/20 02/03/25 Unknown History (2.5 mg base)/3 mL nebulization soln multivitamin 1 tab PO DAILY 06/15/22 02/03/25 02/03/25 History krill oil 500 mg capsule 500 mg PO DAILY 05/07/23 02/03/25 02/03/25 History budesonide 160 mcg-glycopyr 9 2 inh inhalation BID #10.7 grams 06/04/23 02/03/25 02/03/25 Rx mcg-formot 4.8 mcg/actuation HFA inhaler (Breztri Aerosphere) Vitamin D3 50 mg PO DAILY 02/03/25 02/03/25 02/03/25 History ashwagandha root extract 300 mg PO DAILY 02/03/25 02/03/25 02/03/25 History Allergies Allergy/AdvReac Type Severity Reaction Status Date / Time amoxicillin (From Augmentin) Allergy Mild nausea Verified 01/19/25 09:25 clavulanic acid (From Allergy Mild nausea Verified 01/19/25 09:25 Augmentin) amlodipine Allergy Unknown Unknown Verified 01/19/25 09:25 sulfamethoxazole (From Allergy Unknown Unknown Verified 01/19/25 09:25 Bactrim) trimethoprim (From Bactrim) Allergy Unknown Unknown Verified 01/19/25 09:25 adhesive tape Allergy ALGY-Bliste Verified 01/19/25 09:25 r atenolol Allergy Bradycardia Verified 01/19/25 09:25 Sulfa (Sulfonamide Allergy ALGY-Joint Verified 01/19/25 09:25 Antibiotics) Pain Current Medications Generic Name Dose Route Start Last Admin Trade Name Freq PRN Reason Stop Dose Admin Sodium Chloride 1,000 mls @ 30 mls/hr 02/04/25 06:00 02/04/25 06:17 Sodium Chloride 0.9% IV 02/05/25 05:59 30 mls/hr .Q24H CHIOMA Administration PFSH Anesthesia Medical History GERD (gastroesophageal reflux disease) Hypertension COPD (chronic obstructive pulmonary disease) Surgical History Status post laparoscopic cholecystectomy (04/16/20) History of knee surgery History of lung biopsy History of surgery on wrist Social History Smoking and tobacco/nicotine status: never used tobacco/nicotine Second hand smoke exposure: Yes Alcohol intake: former Substance/Drug Use: never Lives independently: Yes Household members: spouse Housing: House Marital status: service: Yes Current occupational status: employed 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
--- NOTE | 2025-02-04 07:05 | W.PM.OPSUD ---
Surgery/Procedure H&P Update DATE OF PROCEDURE: February 04, 2025 DATE H&P PERFORMED: 01/19/25 H&P UPDATE INFORMATION: I have reviewed H&P completed within last 30 days, I have examined patient prior to procedure and No changes to prior documentation PLANNED PROCEDURE: Operation Date: 02/04/25 07:00 Proposed Procedures p Open Inguinal Hernia Repair w/ Mesh(Right) - Roque Forrester MD s Open Umbilical Hernia Repair w/ Mesh(Not Applicable) - Roque Forrester MD
[2025-02-04] MEDS: ceFAZolin 2,000 mg SDV 2000 MG IVP (07:09)
[2025-02-04] MEDS: lidocaine-epi 1% 20 mL INJ INJECTION (09:17)
--- NOTE | 2025-02-04 09:17 | P.OP_ITS ---
Operative Report Date of procedure: February 04, 2025 Pre-op diagnosis: Umbilical hernia and right inguinal hernia Post-op diagnosis: same Post-op findings: Large indirect inguinal hernia. Hernia sac contained fat only and was ligated due to the hernia sac being densely adhered to the testicle. Small amount of hernia sac was left adhered to the testicle to protect its integrity. Cord lipoma resected. Fixed hernia using plug and patch mesh. Indirect hernia defect required two large plugs to repair. Umbilical hernia was small with a fascial defect of 10 mm. Primary repaired umbilical hernia using 0 PDS. Procedure done: Open primary umbilical hernia repair Open right inguinal hernia repair with mesh Implants: Plug and patch mesh. Used one patch and two large plugs. Specimens removed/disposition: Cord lipoma sent to pathology Pathology: Cord lipoma sent to pathology Surgeon: Roque Forrester MD Distribution Center Administrator: N/A Anesthesia: General Estimated blood loss (mL): 30 Urine output: 100cc clear urine Complications: N/A Findings: Large indirect inguinal hernia. Hernia sac contained fat only and was ligated due to the hernia sac being densely adhered to the testicle. Small amount of hernia sac was left adhered to the testicle to protect its integrity. Cord lipoma resected. Fixed hernia using plug and patch mesh. Indirect hernia defect required two large plugs to repair. Umbilical hernia was small with a fascial defect of 10 mm. Primary repaired umbilical hernia using 0 PDS. Condition: stable Disposition: same day Brief History: 59-year-old male who presented with an umbilical hernia and a right inguinal hernia. Both symptomatic. Discussed risk and benefits the patient agreed to proceed with open umbilical hernia repair as well as right inguinal hernia repair. Procedure: Patient brought to the OR and placed supine on the table. SCDs were placed and functioning. Preoperative ancef was administered. General anesthesia was induced. A cagle catheter was placed without any complications. The right groin was prepped and draped in the usual sterile fashion. Local infiltration at the surgical site was done using lidocaine/bupivacaine with epinephrine. A 7cm incision was carried out over the right inguinal canal. Tissue dissection was carried down to the external oblique fascia using electrocautery. The fascia was incised and the cord structures were identified. Cord structures were dissected of the hernia sac which was large. I identified a large indirect inguinal hernia. The hernia sac was dissected and reduced into the abdomen. The plug was placed at the site of the deep inguinal ring and the posterior wall of the inguinal canal was reinforced using a mesh patch. In order to adequately fix the indirect hernia I used two large plugs that were sutured together. The plugs were fixed using 2-0 ethibond to the cojoint ligament and inguinal ligament with interrupted sutures. The mesh patch was sutured to the cojoint tendon and the inguinal ligament using interrupted sutures with 2-0 ethibond. The external oblique fascia was closed using 3-0 vicryl. Skin was closed using 4-0 monocryl and surgical glue. I then proceeded with the umbilical hernia repair. A curvilinear incision was carried out at the umbilicus. Electrocautery was used to dissect down to the fascial defect. I used blunt dissection to get around the hernia sac. I then used electrocautery to dissect the hernia sac off the skin. Hernia sac was reduced into the abdomen. Fascia edges were freshened. Fascial defect was 10mm in size. I then proceeded to perform a primary umbilical hernia repair using 0 PDS. The umbilicus was fixed to the fascia using 0 vicryl to recreate it. 3-0 Vicryl was used to close the deep dermal layer. Skin was closed using 4-0 monocryl and surgical glue. Cagle output was clear and the cagle was removed. The patient woke up from anesthesia and was transferred to PACU without any complications.
[2025-02-04] MEDS: BUPivacaine 0.25% INJ 10 mL INJECTION (09:18)
[2025-02-04] MEDS: oxyCODONE 5 mg IR Tab/Cap PO (10:46)
--- NOTE | 2025-02-04 17:04 | ANE.PACU2 ---
Inpatient post-anesthesia follow up: Airway intact: Yes Vital signs: Temperature 97 F Pulse Rate 71 Respiratory Rate 18 Blood Pressure 126/69 Pulse Oximetry 96 Oxygen Delivery Me thod Room Air Oxygen Flow Rate Fraction of Inspir ed Oxygen Hydration adequate: Yes Nausea and vomiting: No Pain level: 3 Mental status: Baseline
== END 2025-02-04 11:29 | disposition home or self-care (01) ==
PROVIDERS: PCP Family Medicine; Visit Provider Student in an Organized Health Care Education/Training Program
PROC: (CPT 49591; principal; 2025-02-04 07:00)
PROC: (CPT 49591; 2025-02-04 07:00)
DX: K42.9 Umbilical hernia without obstruction or gangrene (principal); K40.90 Unilateral inguinal hernia, without obstruction or gangrene, not specified as recurrent; J44.9 Chronic obstructive pulmonary disease, unspecified; I10 Essential (primary) hypertension; G47.30 Sleep apnea, unspecified; E66.01 Morbid (severe) obesity due to excess calories; D17.6 Benign lipomatous neoplasm of spermatic cord; K21.9 Gastro-esophageal reflux disease without esophagitis; Z90.49 Acquired absence of other specified parts of digestive tract; Z88.2 Allergy status to sulfonamides; Z88.0 Allergy status to penicillin; Z88.8 Allergy status to other drugs, medicaments and biological substances; Z68.38 Body mass index [BMI] 38.0-38.9, adult
CPT/HCPCS: 49591; 49505; 88304; C1781; J0131; J0330; J0690; J1100; J1171; J2003; J2371; J2405; J2704; J2710; J3010; J3490; J7030; J9999

== ENCOUNTER → 2025-02-16 08:22 | Outpatient (BNVA) | payer OTHER, SELFPAY | PROVIDERS: PCP Family Medicine; Visit Provider Student in an Organized Health Care Education/Training Program | DX: R03.0 Elevated blood-pressure reading, without diagnosis of hypertension (principal); Z98.890 Other specified postprocedural states | CPT/HCPCS: 99024 ==

== ENCOUNTER → 2025-09-03 14:48 | Outpatient (BNVA) | payer OTHER, SELFPAY | PROVIDERS: PCP Family Medicine; Referring Provider Nurse Practitioner; Visit Provider Internal Medicine | DX: J44.89 Other specified chronic obstructive pulmonary disease (principal); J43.9 Emphysema, unspecified; G47.33 Obstructive sleep apnea (adult) (pediatric); Z99.89 Dependence on other enabling machines and devices; T78.40XA Allergy, unspecified, initial encounter; X58.XXXA Exposure to other specified factors, initial encounter; J44.9 Chronic obstructive pulmonary disease, unspecified | CPT/HCPCS: 99204; Q3014 ==